=== PATIENT | male | born 1970 | race Caucasian/White ===

== ENCOUNTER → 2017-06-03 | Outpatient (CLI) | payer MEDICARE, SELFPAY | PROVIDERS: Visit Provider Physician Assistant | DX: R79.89 Other specified abnormal findings of blood chemistry (principal) | CPT/HCPCS: 36415; 80048 ==

== ENCOUNTER → 2017-10-21 13:26 | Outpatient (REF) | payer MEDICARE, SELFPAY ==
[2017-10-21 18:20] LABS: Basophils # 0.1 K/mm3 (0-0.2); Basophils % 0.7 % (0.1-2.0); Eosinophils # 0.6 K/mm3 (0.0-0.4); Eosinophils % 7.5 % (0.1-12.0); Hematocrit 46.3 % (42.0-52.0); Hemoglobin 14.8 g/dL (14.1-18.0); Lymphocytes # 2.3 K/mm3 (0.7-4.5); Lymphocytes % 27.2 K/mm3 (10-50); Mean Corpuscular HGB Conc 31.9 g/dL (31.8-35.4); Mean Corpuscular Volume 84.6 fl (80-94); Mean Platelet Volume 8.1 fl (7.4-10.4); Monocytes # 0.7 K/mm3 (0.1-1.0); Neutrophils # 4.7 K/mm3 (1.8-7.8); Neutrophils % 56.6 % (37.0-80.0); Platelet Count 384 K/mm3 (142-424); Red Blood Count 5.47 M/mm3 (4.60-6.20); Red Cell Distribution Width 12.8 % (11.5-17.5); White Blood Count 8.3 K/mm3 (4.8-10.8)
[2017-10-21 19:25] LABS: Hemoglobin A1C 7.6 % (0.0-7.0)
[2017-10-21 19:36] LABS: Alanine Aminotransferase 74 U/L (12-78); Albumin Level 4.4 gm/dL (3.4-5.0); Albumin/Globulin Ratio 1.1 (1.1-1.8); Alkaline Phosphatase 63 U/L (46-116); Anion Gap 15.6 mEq/L (5-15); Aspartate Amino Transferase 43 U/L (15-37); Bilirubin,Total 0.4 mg/dL (0.2-1.0); Blood Urea Nitrogen 21 mg/dL (7-18); Calcium 9.6 mg/dL (8.5-10.1); Carbon Dioxide 29 mmol/L (21.0-32.0); Chloride 103 mmol/L (98-107); Cholesterol 174 mg/dL (140-200); Creatinine,Serum 1.55 mg/dL (0.70-1.30); Estimated Glomerular Filt Rate 48 ml/min (>60); GFR (African American) 58 ML/MIN (>60); Globulin 3.9 gm/dl (1.3-3.2); Glucose 68 mg/dL (74-106); HDL Cholesterol 29 mg/dL (27-67); LDL Cholesterol 98 mg/dL (0-130); Potassium 4.6 mmoL/L (3.5-5.1); Sodium 143 mmol/L (136-145); T4 (Thyroxine) 7.7 ug/dl (4.7-13.3); Thyroid Stimulating Hormone 1.28 uIU/ml (0.358-3.740); Total Protein,Serum 8.3 gm/dL (6.4-8.2); Triglycerides 234 mg/dL (30-200); VLDL Cholesterol 47 mg/dL (0-40)
== END ==
LOC: LAB 13:26
PROVIDERS: Visit Provider Physician Assistant
DX: E11.9 Type 2 diabetes mellitus without complications (principal)
CPT/HCPCS: 80053; 80061; 83036; 84436; 84443; 85025

== ENCOUNTER → 2017-12-22 06:54 | Outpatient (CLI) | payer MEDICARE, SELFPAY ==
--- NOTE | 2017-12-22 06:56 | CA_ITS ---
PROCEDURE: 2-D M-mode and color Doppler study INDICATIONS FOR THE TEST: Chest pain COPD Heart Murmur Tobacco Smoking Palpitations Fatigue+ Syncope Edema+ Hypertension Diabetes Mellitus+ Rheumatic Fever SOB+MCCARTHY Obesity Hyperlipidemia Family History HD Additional History PATIENT INFORMATION HEIGHT: 75 WEIGHT:248 GENDER: Male B/P:168/94 2-D/M-MODE INTERPRETATION: 2-D MEASUREMENTS OBSERVED VALUES IN CMS Right Ventricular Dimension (RVDd) 2.3 Interventricular Septum (Thickness)(IVsd) 1.6 Left Ventricular Internal Dimensions(LVIDd) 5.4 Left Ventricular Posterior Wall (Thickness)(LVPWd) 0.8 Aortic Root 3.2 Aortic Cusp Separation 2.2 Left Atrial Dimensions (LAD) 4.2 2D 1. Left atrium is mildly enlarged, left ventricle is normal size, mild concentric left ventricular hypertrophy, visually estimated ejection fraction 55% with no obvious regional wall motion abnormality. 2. The right atrium and right ventricle are normal size and contractility. 3. The aortic valve is minimally thickened and fibrosed. 4. The mitral and tricuspid valve are structurally normal. 5. The pulmonic valve is poorly visualized. 6. No significant pericardial effusion noted. DOPPLER INTERROGATION: Doppler interrogation of the aortic, mitral and tricuspid valvular presence of mild mitral and tricuspid regurgitation, tricuspid and jet velocity is insufficient for calculation of the right ventricular systolic pressure, grade 1 diastolic dysfunction seen with tissue Doppler evidence of raised left atrial pressure. Mild aortic insufficiency is also seen. CONCLUSION: 1. Mildly enlarged left atrium, normal left ventricular size, mild concentric left ventricular hypertrophy, visually estimated ejection fraction 55% with no obvious regional wall motion abnormality, grade 1 diastolic dysfunction seen with tissue Doppler evidence of raised left atrial pressure. 2. Mild aortic, mild mitral and tricuspid regurgitation 3. No significant pericardial effusion noted.
--- NOTE | 2017-12-22 06:56 | NM_ITS ---
History and Indications: Hypertension, diabetes, family history, shortness of breath, palpitations and fatigue Procedure: Patient exercised on Sabino protocol 7 minutes, resting heart rate was 75 bpm resting blood pressure 133/81, with exercise maximum heart rate achieved was 1 51 bpm which is equal to 88% of the maximum predicted heart rate and a blood pressure was 167/84. Test was started due to shortness of breath, patient complained of mild chest tightness also. Patient has good exercise capacity achieved 10.1mets of workload on treadmill, the blood pressure response to exercise was adequate. Electrocardiogram: Resting electrocardiogram showed sinus rhythm nonspecific ST-T changes, with exercise excessive baseline artifact seen, less than 1.[address] segment depression noted from the baseline EKG. The EKG portion of the exercise Myoview is nondiagnostic secondary to baseline abnormal EKG. Cardiac stress and resting SPECT images: Cardiac stress and rest SPECT images were obtained using technetium 99 Myoview 30.8 mCi at stress content 10.8 mCi at rest. Gated SPECT further analysis of segmental wall motion and calculation of the ejection fraction also done. Cardiac stress and rest images show decreased tracer activity in the inferior and posterobasal wall which improves on the resting images suggestive of reversible ischemia, computer derived ejection fraction is 55% with no obvious regional wall motion abnormality, right ventricle is normal size and contractility. Conclusion: 1. The EKG portion of the exercise Myoview is nondiagnostic secondary to baseline abnormal EKG. Patient has good exercise capacity achieved 10.1mets of workload on treadmill, the blood pressure response to exercise was adequate, test was started due to shortness of breath and chest tightness. 2. Scintigraphic evidence of mild reversible ischemia involving the inferior and posterobasal wall, computer derived ejection fraction is 55% with no obvious regional wall motion abnormality, right ventricle is normal size and contractility. 3. Abnormal exercise Myoview study.
== END ==
PROVIDERS: Family Provider Physician Assistant; PCP Physician Assistant; Visit Provider Internal Medicine
DX: R06.09 Other forms of dyspnea (principal); R94.31 Abnormal electrocardiogram [ECG] [EKG]; R60.9 Edema, unspecified; R53.83 Other fatigue; E11.621 Type 2 diabetes mellitus with foot ulcer
CPT/HCPCS: 78452; 93017; 93306; A9502

== ENCOUNTER → 2018-01-12 14:47 | Outpatient (CLI) | payer MEDICARE, SELFPAY ==
[2018-01-12 14:53] LABS: Microscopic, Urine URINE MICROSCOPIC (MICROSCOPIC)
[2018-01-12 15:14] LABS: Appearance,Urine CLEAR (Clear); Basophils # 0.1 K/mm3 (0-0.2); Basophils % 0.5 % (0.1-2.0); Bilirubin,Urine Negative (Negative); Blood, Urine Negative (Negative); Color,Urine YELLOW (Yellow); Eosinophils # 0.6 K/mm3 (0.0-0.4); Eosinophils % 5.9 % (0.1-12.0); Glucose,Urine (UA) TRACE (Negative); Hemoglobin 14.2 g/dL (14.1-18.0); Ketones,Urine Negative (Negative); Leukocyte Esterase,Urine Negative (Negative); Lymphocytes # 2.4 K/mm3 (0.7-4.5); Lymphocytes % 24.3 K/mm3 (10-50); Mean Corpuscular HGB Conc 32.4 g/dL (31.8-35.4); Mean Corpuscular Hemoglobin 26.6 pg (27.0-31.2); Mean Corpuscular Volume 82.1 fl (80-94); Mean Platelet Volume 7.2 fl (7.4-10.4); Monocytes # 0.6 K/mm3 (0.1-1.0); Monocytes % 5.7 % (1.7-9.3); Neutrophils # 6.4 K/mm3 (1.8-7.8); Neutrophils % 63.7 % (37.0-80.0); Nitrate,Urine Negative (Negative); Platelet Count 374 K/mm3 (142-424); Protein,Urine TRACE (Negative); Red Blood Count 5.36 M/mm3 (4.60-6.20); Red Cell Distribution Width 12.8 % (11.5-17.5); Urobilinogen,Urine 0.2 EU/dl (0.2)
[2018-01-12 15:19] LABS: Creatinine,Urine Random 186 mg/dL (20-320); Total Protein,Urine Random 43.7 mg/dL (0.0-11.9)
[2018-01-12 15:24] LABS: Bacteria,Urine 1+ /lpf; WBC,Urine Occasional #/hpf (0-3)
[2018-01-12 16:30] LABS: Albumin Level 4.2 gm/dL (3.4-5.0); Anion Gap 12.7 mEq/L (5-15); Blood Urea Nitrogen 23 mg/dL (7-18); Calcium 9.3 mg/dL (8.5-10.1); Carbon Dioxide 30 mmol/L (21.0-32.0); Chloride 101 mmol/L (98-107); Estimated Glomerular Filt Rate 50 ml/min (>60); GFR (African American) 60 ML/MIN (>60); Glucose 207 mg/dL (74-106); Phosphorous 3.7 mg/dL (2.4-4.9); Potassium 4.7 mmoL/L (3.5-5.1); Sodium 139 mmol/L (136-145)
[2018-01-14 17:12] LABS: Parathyroid Hormone Intact 37 pg/mL (15-65); Vitamin D 25 Hydroxy 33.3 ng/mL (30.0-100.0)
== END ==
PROVIDERS: Visit Provider Internal Medicine Nephrology
DX: N18.3 Chronic kidney disease, stage 3 (moderate) (principal)
CPT/HCPCS: 36415; 80069; 81001; 82570; 82652; 83970; 84155; 85025

== ENCOUNTER → 2018-01-19 15:25 | Outpatient (POV) | payer MEDICARE, SELFPAY | PROVIDERS: Family Provider Physician Assistant; PCP Physician Assistant; Visit Provider Internal Medicine Nephrology | DX: Z00.00 Encounter for general adult medical examination without abnormal findings (principal) ==

== ENCOUNTER → 2018-07-17 13:06 | Outpatient (CLI) | payer MEDICARE, SELFPAY ==
[2018-07-17 13:09] LABS: Microscopic, Urine URINE MICROSCOPIC (MICROSCOPIC)
--- NOTE | 2018-07-17 13:30 | US_ITS ---
US kidney retroperitoneal comp HISTORY: ITS.REASON: CKD III ORDERING PHYSICIAN: Shaji Youssef PATIENT AGE: 47 years Comparison: None FINDINGS: RIGHT KIDNEY:Unremarkable. Normal size and echogenicity. No hydronephrosis. The right kidney measures 13 x 5 x 7 cm. No cortical thinning LEFT KIDNEY:Unremarkable. No hydronephrosis. Normal size and echogenicity. Left kidney measures 14 x 5 x 7 cm. No cortical thinning apparent OTHER FINDINGS: No other pertinent findings IMPRESSION: Unremarkable bilateral renal ultrasound
[2018-07-17 13:40] LABS: Basophils % 0.3 % (0.1-2.0); Eosinophils # 0.1 K/mm3 (0.0-0.4); Eosinophils % 0.5 % (0.1-12.0); Lymphocytes # 1.4 K/mm3 (0.7-4.5); Lymphocytes % 11.3 % (10-50); Mean Corpuscular Hemoglobin 26.4 pg (27.0-31.2); Mean Corpuscular Volume 85.4 fl (80-94); Mean Platelet Volume 7.4 fl (7.4-10.4); Monocytes # 0.6 K/mm3 (0.1-1.0); Monocytes % 4.8 % (1.7-9.3); Neutrophils # 10.4 K/mm3 (1.8-7.8); Neutrophils % 83.2 % (37.0-80.0); Platelet Count 433 K/mm3 (142-424); Red Blood Count 5.28 M/mm3 (4.60-6.20); Red Cell Distribution Width 12.7 % (11.5-17.5); White Blood Count 12.5 K/mm3 (4.8-10.8)
[2018-07-17 14:14] LABS: Appearance,Urine CLEAR (Clear); Bilirubin,Urine Negative (Negative); Blood, Urine Negative (Negative); Color,Urine YELLOW (Yellow); Glucose,Urine (UA) 3+ (Negative); Ketones,Urine Negative (Negative); Leukocyte Esterase,Urine Negative (Negative); Nitrate,Urine Negative (Negative); Protein,Urine 1+ (Negative); Urobilinogen,Urine 0.2 EU/dl (0.2)
[2018-07-17 14:31] LABS: Creatinine,Urine Random 96 mg/dL (20-320); Total Protein,Urine Random 50.3 mg/dL (0.0-11.9)
[2018-07-17 14:40] LABS: Albumin Level 3.7 gm/dL (3.4-5.0); Anion Gap 15.3 mEq/L (5-15); Blood Urea Nitrogen 32 mg/dL (7-18); Calcium 9.7 mg/dL (8.5-10.1); Carbon Dioxide 28 mmol/L (21.0-32.0); Chloride 97 mmol/L (98-107); Creatinine,Serum 1.48 mg/dL (0.70-1.30); Estimated Glomerular Filt Rate 51 ml/min (>60); GFR (African American) 61 ML/MIN (>60); Glucose 375 mg/dL (74-106); Phosphorous 4.5 mg/dL (2.4-4.9); Potassium 5.3 mmoL/L (3.5-5.1); Sodium 135 mmol/L (136-145)
[2018-07-17 15:09] LABS: Bacteria,Urine 1+ /lpf; RBC,Urine Occasional #/hpf (0-3)
== END ==
PROVIDERS: Visit Provider Internal Medicine Nephrology
DX: N18.3 Chronic kidney disease, stage 3 (moderate) (principal)
CPT/HCPCS: 36415; 76770; 80069; 81001; 82570; 84155; 85025

== ENCOUNTER → 2019-02-16 17:54 | Outpatient (CLI) | payer MEDICARE, SELFPAY ==
[2019-02-16 18:30] LABS: Basophils # 0.1 K/mm3 (0-0.2); Basophils % 0.5 % (0.1-2.0); Eosinophils # 0.7 K/mm3 (0.0-0.4); Eosinophils % 7.4 % (0.1-12.0); Hematocrit 43.1 % (42.0-52.0); Hemoglobin 13.8 g/dL (14.1-18.0); Lymphocytes # 1.7 K/mm3 (0.7-4.5); Lymphocytes % 17.3 % (10-50); Mean Corpuscular HGB Conc 32.1 g/dL (31.8-35.4); Mean Corpuscular Hemoglobin 27.2 pg (27.0-31.2); Mean Corpuscular Volume 84.8 fl (80-94); Mean Platelet Volume 8.3 fl (7.4-10.4); Monocytes # 0.6 K/mm3 (0.1-1.0); Monocytes % 6.4 % (1.7-9.3); Neutrophils # 6.7 K/mm3 (1.8-7.8); Neutrophils % 68.4 % (37.0-80.0); Platelet Count 391 K/mm3 (142-424); Red Blood Count 5.08 M/mm3 (4.60-6.20); Red Cell Distribution Width 13.2 % (11.5-17.5); White Blood Count 9.9 K/mm3 (4.8-10.8)
[2019-02-16 19:21] LABS: Alanine Aminotransferase 66 U/L (12-78); Albumin/Globulin Ratio 1.1 (1.1-1.8); Alkaline Phosphatase 55 U/L (46-116); Anion Gap 16.4 mEq/L (5-15); Aspartate Amino Transferase 32 U/L (15-37); Bilirubin,Total 0.4 mg/dL (0.2-1.0); Blood Urea Nitrogen 23 mg/dL (7-18); Calcium 9.4 mg/dL (8.5-10.1); Carbon Dioxide 26 mmol/L (21.0-32.0); Chloride 100 mmol/L (98-107); Chol/HDL Ratio 4.5 (1-3.5); Cholesterol 109 mg/dL (140-200); Creatinine,Serum 1.53 mg/dL (0.70-1.30); Estimated Glomerular Filt Rate 49 ml/min (>60); GFR (African American) 59 ML/MIN (>60); Globulin 3.5 gm/dl (1.3-3.2); Glucose 296 mg/dL (74-106); HDL Cholesterol 24 mg/dL (27-67); LDL Cholesterol 26 mg/dL (0-130); Potassium 5.4 mmoL/L (3.5-5.1); Sodium 137 mmol/L (136-145); T4 (Thyroxine) 5.8 ug/dl (4.7-13.3); Thyroid Stimulating Hormone 1.14 uIU/ml (0.358-3.740); Total Protein,Serum 7.5 gm/dL (6.4-8.2); Triglycerides 295 mg/dL (30-200); VLDL Cholesterol 59 mg/dL (0-40)
[2019-02-16 19:54] LABS: Hemoglobin A1C 8.8 % (0.0-7.0)
[2019-02-19 11:41] LABS: Vitamin D 25 Hydroxy 23.8 ng/mL (30.0-100.0)
[2019-02-19 11:42] LABS: Microalbumin, Urine 89.3 ug/mL (Not Estab.)
== END ==
PROVIDERS: Visit Provider Physician Assistant
DX: E11.9 Type 2 diabetes mellitus without complications (principal); Z79.84 Long term (current) use of oral hypoglycemic drugs
CPT/HCPCS: 80053; 80061; 82043; 82652; 83036; 84436; 84443; 85025

== ENCOUNTER → 2019-08-31 10:02 | Outpatient (CLI) | payer MEDICARE, SELFPAY ==
--- NOTE | 2019-08-31 10:08 | XR_ITS ---
PROCEDURE: XR FOOT WT BEARING LT 3V CLINICAL INDICATION: b/l dm ulcers, hx of toe amputations Follow-up surgery COMPARISON: FTR3 FOOT-RT-3 VIEWS from 12/28/2014 FTR3 FOOT-RT-3 VIEWS from 10/31/2015 FTL3 FOOT-LT-3 VIEWS from 10/31/2015 FINDINGS: There has been amputation at the mid aspect of the 5th metatarsal and the mid to distal aspect the 4th metatarsal. The 1st 2nd and 3rd toes have an unremarkable appearance. No bony destructive process evident. There is mild pes planus with mild osteoarthritic change at the talonavicular joint. Other findings:None. IMPRESSION: Prior amputation at the 4th and 5th metatarsals with no acute finding Dictated by: Garfield Velasco MD 08/31/2019 12:03 Electronically signed by Garfield Velasco MD in [place] 08/31/2019 12:03
--- NOTE | 2019-08-31 10:08 | XR_ITS ---
PROCEDURE: XR FOOT WT BEARING RT 3V CLINICAL INDICATION: b/l DM ulcers, hx of toe amputations Follow-up surgery COMPARISON: FTR3 FOOT-RT-3 VIEWS from 12/28/2014 FTR3 FOOT-RT-3 VIEWS from 10/31/2015 FTL3 FOOT-LT-3 VIEWS from 10/31/2015 FINDINGS: There has been an interval amputation at the mid aspect of the 4th metatarsal. There is some deformity of the distal aspect of the 3rd metatarsal with sclerosis at the proximal phalanx of the 3rd toe. There is a short proximal phalanx of the 3rd toe which has developed since the previous study and may be postsurgical in nature. There is some cortical regularity involving the interphalangeal joint of the 3rd toe. The joint space is preserved however. This could be chronic or acute. Cannot exclude the possibility of a septic arthritic change or erosive osteoarthritis. Please correlate with clinical parameters. Osteoarthritic changes are present at the talonavicular joint IMPRESSION: There has been an interval amputation at the mid aspect of the 4th metatarsal. There is some deformity of the distal aspect of the 3rd metatarsal with sclerosis at the proximal phalanx of the 3rd toe. There is a short proximal phalanx of the 3rd toe which has developed since the previous study and may be postsurgical in nature. There is some cortical regularity involving the interphalangeal joint of the 3rd toe. The joint space is preserved however. This could be chronic or acute. Cannot exclude the possibility of a septic arthritic change or erosive osteoarthritis. Dictated by: Garfield Velasco MD 08/31/2019 11:39 Electronically signed by Garfield Velasco MD in [place] 08/31/2019 11:39
[2019-08-31 11:12] LABS: Basophils % 0.6 % (0.1-2.0); Eosinophils # 0.8 K/mm3 (0.0-0.4); Eosinophils % 10.8 % (0.1-12.0); Hemoglobin 13.4 g/dL (14.1-18.0); Lymphocytes # 1.7 K/mm3 (0.7-4.5); Lymphocytes % 24.6 % (10-50); Mean Corpuscular HGB Conc 31.1 g/dL (31.8-35.4); Mean Corpuscular Hemoglobin 26.9 pg (27.0-31.2); Mean Corpuscular Volume 86.4 fl (80-94); Mean Platelet Volume 7.4 fl (7.4-10.4); Monocytes # 0.4 K/mm3 (0.1-1.0); Monocytes % 5.7 % (1.7-9.3); Neutrophils % 58.3 % (37.0-80.0); Platelet Count 369 K/mm3 (142-424); Red Blood Count 4.98 M/mm3 (4.60-6.20); Red Cell Distribution Width 12.8 % (11.5-17.5); White Blood Count 6.9 K/mm3 (4.8-10.8)
[2019-08-31 12:13] LABS: Erythrocyte Sedimentation Rate 15 mm/hr (0-15)
[2019-08-31 12:15] LABS: Alanine Aminotransferase 24 U/L (12-78); Albumin Level 4.4 g/dl (3.5-5.0); Albumin/Globulin Ratio 1.5 (1.1-1.8); Alkaline Phosphatase 44 U/L (38-126); Anion Gap 13.1 mEq/L (5-15); Aspartate Amino Transferase 29 U/L (17-59); Bilirubin,Total 0.3 mg/dl (0.2-1.3); Blood Urea Nitrogen 22 mg/dl (9-20); Carbon Dioxide 30 mmol/L (22.0-30.0); Chloride 100 mmol/L (98-107); Estimated Glomerular Filt Rate 64 ml/min (>60); GFR (African American) 78 ML/MIN (>60); Globulin 2.9 g/dL (1.3-3.2); Glucose 78 mg/dl (74-100); Potassium 5.1 mmoL/L (3.5-5.1); Sodium 138 mmol/L (136-145); Total Protein,Serum 7.3 g/dl (6.3-8.2)
[2019-08-31 12:20] LABS: C-Reactive Protein 1.9 mg/L (0-4)
== END ==
PROVIDERS: PCP Physician Assistant; Visit Provider Podiatrist
DX: Z51.89 Encounter for other specified aftercare (principal); R94.31 Abnormal electrocardiogram [ECG] [EKG]; R09.89 Other specified symptoms and signs involving the circulatory and respiratory systems; E11.621 Type 2 diabetes mellitus with foot ulcer; Z89.422 Acquired absence of other left toe(s); Z89.421 Acquired absence of other right toe(s); L97.512 Non-pressure chronic ulcer of other part of right foot with fat layer exposed; L97.522 Non-pressure chronic ulcer of other part of left foot with fat layer exposed; Z79.84 Long term (current) use of oral hypoglycemic drugs
CPT/HCPCS: 36415; 73630; 80053; 85025; 85651; 86140

== ENCOUNTER → 2019-09-03 10:34 | Outpatient (CLI) | payer MEDICARE, SELFPAY ==
--- NOTE | 2019-09-03 10:35 | US_ITS ---
APPROVED REPORT Exam Type: Ankle to Brachial Index Project Management Analyst: Susana Frost RT(R) Indications Non-healing Ulcer: Bilaterally Risk Factors Hypertension Hyperlipidemia Diabetes bilateral ulcers on plantar surface of both feet Pressures/Indices Right Indices Left Indices Brachial 152.00 mmHg Brachial 152.00 mmHg Low Thigh 177.00 mmHg 1.16 Low Thigh 193.00 mmHg 1.27 Calf 190.00 mmHg 1.25 Calf 184.00 mmHg 1.21 Ankle(PT) 192.00 mmHg 1.26 Ankle(PT) 197.00 mmHg 1.30 Ankle(DP) 185.00 mmHg 1.22 Ankle(DP) 168.00 mmHg 1.11 Digit 164.00 mmHg 1.08 Digit 110.00 mmHg 0.72 Findings RT TERRA=1.3 LT TERRA=1.3 RT TBI=1.1 LT TBI=0.7 Normal pulses Normal waveforms TERRA ratios consistent with restrictive pattern secondary to diabetes Conclusion Normal pulses Normal waveforms TERRA ratios consistent with restrictive pattern secondary to diabetes Electronically signed by : Garfield Velasco MD 09/03/2019 15:06:38
== END ==
PROVIDERS: PCP Physician Assistant; Visit Provider Podiatrist
DX: R09.89 Other specified symptoms and signs involving the circulatory and respiratory systems (principal)
CPT/HCPCS: 93923

== ENCOUNTER → 2019-09-07 13:00 | Outpatient (CLI) | payer MEDICARE, SELFPAY ==
--- NOTE | 2019-09-07 13:00 | MR_ITS ---
PROCEDURE: MR FOOT RT WO/W CON CLINICAL INDICATION: Chronic non-healing DM ulcer Nonhealing diabetic ulcer at the 5th metatarsal area COMPARISON: XR FOOT WT BEARING RT 3V from 08/31/2019 XR FOOT RT MIN 3V from 09/09/2019 TECHNIQUE: Routine multiplanar multi echo sequences are performed without and with gadolinium enhancement. FINDINGS: There has been prior amputation the mid aspect of the 4th metatarsal. There is medial deviation of the 5th toe and lateral deviation of the 3rd toe. There is increased T2 signal within the soft tissues at the distal aspect of the 5th metatarsal medially and about the 5th toe. There is also some increased T2 signal within the head of the 5th metatarsal as well as the phalanges of the 5th toe with enhancement of these structures and the surrounding soft tissues. Soft tissue ulceration noted along the plantar surface at the head of the 5th metatarsal.. No abscess or fistulous tract evident. There is a small focus of increased T2 signal in the middle cuneiform nonspecific. The anterior talofibular ligament is not identified and may be torn. No other ligamentous or tendinous abnormalities are evident. IMPRESSION: Cellulitis about the 5th metatarsophalangeal joint and the 5th toe with some bone marrow edema noted at these areas as well which could be related to underlying osteomyelitis. No abscess or fistulous tracts evident. Postsurgical changes from prior amputation of the 4th metatarsal with medial deviation of the 5th toe and lateral angulation of the 3rd toe Suspect chronic tear of the ATFL Dictated by: Garfield Velasco MD 09/10/2019 10:05 Electronically signed by Garfield Velasco MD in [place] 09/10/2019 10:05
== END ==
PROVIDERS: PCP Physician Assistant; Visit Provider Podiatrist
DX: L97.512 Non-pressure chronic ulcer of other part of right foot with fat layer exposed (principal)
CPT/HCPCS: 73720; A9576

== ENCOUNTER → 2019-09-08 11:41 | Outpatient (CLI) | payer MEDICARE, SELFPAY ==
--- NOTE | 2019-09-08 11:46 | XR_ITS ---
PROCEDURE: XR CHEST 2V CLINICAL HISTORY: HTN Hypertension COMPARISON: CXR CHEST(2 VIEWS-NOT PORTABLE) from 01/10/2015 CXR1 CHEST-PORTABLE from 02/14/2016 CXR CHEST(2 VIEWS-NOT PORTABLE) from 05/19/2017 FINDINGS: The cardiomediastinal silhouette and pulmonary vascularity are within normal limits. The lungs are clear without infiltrates, suspicious nodules, or pleural effusions. No acute bony abnormalities. IMPRESSION: No acute findings. Dictated by: Garfield Velasco MD 09/08/2019 12:46 Electronically signed by Garfield Velasco MD in [place] 09/08/2019 12:46
--- NOTE | 2019-09-08 12:03 | ECG_ITS ---
APPROVED REPORT Exam: Resting ECG HR:77 bpm ECG Measurements Heart Rate 77 AXES WI 150 P 19 QRSd 88 QRS -26 QT 354 T 63 QTc 400 <Conclusion> Normal sinus rhythm Normal ECG Electronically signed by : Keo Bills, 09/08/2019 21:37:24
== END ==
PROVIDERS: PCP Physician Assistant; Visit Provider Podiatrist
DX: Z01.818 Encounter for other preprocedural examination (principal); L97.512 Non-pressure chronic ulcer of other part of right foot with fat layer exposed
CPT/HCPCS: 71046; 93005

== ENCOUNTER 2019-09-10 10:17 | Outpatient (CLI) | payer MEDICARE, SELFPAY ==
[2019-09-10 10:45] VITALS: BP 132/67; PULSE 80; O2SAT 98
[2019-09-10 11:45] VITALS: BP 134/74; PULSE 82; RESP 20
[2019-09-10 12:38] VITALS: BP 134/74; PULSE 68; RESP 20; TEMP 36.9; O2SAT 98
== END 2019-09-10 12:50 | disposition home or self-care (01) ==
LOC: INF 10:17
PROVIDERS: Visit Provider Podiatrist
DX: L97.522 Non-pressure chronic ulcer of other part of left foot with fat layer exposed (principal); E11.621 Type 2 diabetes mellitus with foot ulcer; Z86.14 Personal history of Methicillin resistant Staphylococcus aureus infection; Z79.84 Long term (current) use of oral hypoglycemic drugs
CPT/HCPCS: 96365; 96366

== ENCOUNTER → 2019-10-28 18:22 | Outpatient (CLI) | payer MEDICARE, SELFPAY | PROVIDERS: Visit Provider Podiatrist | DX: Z98.890 Other specified postprocedural states (principal) | CPT/HCPCS: 87070; 87077; 87186; 87205 ==

== ENCOUNTER → 2019-11-02 09:08 | Outpatient (CLI) | payer MEDICARE, SELFPAY ==
--- NOTE | 2019-11-02 09:44 | XR_ITS ---
PROCEDURE: XR FOOT WT BEARING RT 3V CLINICAL INDICATION: post-op COMPARISON: XR FOOT RT MIN 3V from 09/09/2019 FINDINGS: The cast has been removed when compared to the most recent study 09/09/2019. The transmetatarsal amputation of the distal forefoot is again noted. The postsurgical stumps of the 1st through 5th metatarsals have smooth well-defined postsurgical borders. The soft tissues appear normal. The tarsal bones appear grossly normal except for minor dorsal spurring of the navicular at the talonavicular articulation. Other findings:None. IMPRESSION: Postsurgical changes as described above Dictated by: Dr. Stoney De La Rosa MD 11/02/2019 10:[address] Stoney De La Rosa MD in [place] 11/02/2019 10:04
[2019-11-02 10:01] LABS: Basophils # 0.1 K/mm3 (0-0.2); Basophils % 0.8 % (0.1-2.0); Eosinophils # 0.8 K/mm3 (0.0-0.4); Eosinophils % 10.7 % (0.1-12.0); Hematocrit 42.4 % (42.0-52.0); Hemoglobin 13.2 g/dL (14.1-18.0); Lymphocytes # 1.9 K/mm3 (0.7-4.5); Lymphocytes % 25.4 % (10-50); Mean Corpuscular HGB Conc 31.1 g/dL (31.8-35.4); Mean Corpuscular Hemoglobin 26.2 pg (27.0-31.2); Mean Corpuscular Volume 84.3 fl (80-94); Mean Platelet Volume 7.2 fl (7.4-10.4); Monocytes # 0.6 K/mm3 (0.1-1.0); Monocytes % 7.8 % (1.7-9.3); Neutrophils # 4.2 K/mm3 (1.8-7.8); Neutrophils % 55.4 % (37.0-80.0); Platelet Count 410 K/mm3 (142-424); Red Blood Count 5.03 M/mm3 (4.60-6.20); Red Cell Distribution Width 13.5 % (11.5-17.5); White Blood Count 7.5 K/mm3 (4.8-10.8)
[2019-11-02 11:04] LABS: Chloride 98 mmol/L (98-107); Erythrocyte Sedimentation Rate 15 mm/hr (0-15); Potassium 5.5 mmoL/L (3.5-5.1); Sodium 137 mmol/L (136-145)
[2019-11-02 11:07] LABS: Alanine Aminotransferase 19 U/L (12-78); Albumin Level 4.5 g/dl (3.5-5.0); Albumin/Globulin Ratio 1.5 (1.1-1.8); Alkaline Phosphatase 49 U/L (38-126); Anion Gap 14.5 mEq/L (5-15); Aspartate Amino Transferase 26 U/L (17-59); Bilirubin,Total 0.6 mg/dl (0.2-1.3); Blood Urea Nitrogen 30 mg/dl (9-20); Calcium 9.9 mg/dl (8.4-10.2); Carbon Dioxide 30 mmol/L (22.0-30.0); Estimated Glomerular Filt Rate 64 ml/min (>60); GFR (African American) 78 ML/MIN (>60); Glucose 113 mg/dl (74-100); Total Protein,Serum 7.5 g/dl (6.3-8.2)
[2019-11-02 11:13] LABS: C-Reactive Protein 1.2 mg/L (0-4)
== END ==
PROVIDERS: PCP Physician Assistant; Visit Provider Podiatrist
DX: Z98.890 Other specified postprocedural states (principal); Z86.14 Personal history of Methicillin resistant Staphylococcus aureus infection
CPT/HCPCS: 36415; 73630; 80053; 85025; 85651; 86140

== ENCOUNTER → 2019-11-16 09:12 | Outpatient (CLI) | payer MEDICARE, SELFPAY ==
[2019-11-16 10:35] LABS: Basophils # 0.1 K/mm3 (0-0.2); Basophils % 1.2 % (0.1-2.0); Eosinophils # 0.7 K/mm3 (0.0-0.4); Eosinophils % 9.5 % (0.1-12.0); Hematocrit 42.5 % (42.0-52.0); Hemoglobin 13.5 g/dL (14.1-18.0); Lymphocytes # 1.7 K/mm3 (0.7-4.5); Mean Corpuscular HGB Conc 31.9 g/dL (31.8-35.4); Mean Corpuscular Hemoglobin 27.1 pg (27.0-31.2); Mean Platelet Volume 7.3 fl (7.4-10.4); Monocytes # 0.5 K/mm3 (0.1-1.0); Neutrophils # 4.8 K/mm3 (1.8-7.8); Neutrophils % 61.3 % (37.0-80.0); Platelet Count 367 K/mm3 (142-424); Red Cell Distribution Width 13.3 % (11.5-17.5); White Blood Count 7.8 K/mm3 (4.8-10.8)
[2019-11-16 11:44] LABS: Erythrocyte Sedimentation Rate 15 mm/hr (0-15)
[2019-11-16 12:14] LABS: Hemoglobin A1C 6.4 % (4.0-6.0)
[2019-11-16 12:17] LABS: Alanine Aminotransferase 27 U/L (12-78); Albumin Level 4.9 g/dl (3.5-5.0); Albumin/Globulin Ratio 1.5 (1.1-1.8); Alkaline Phosphatase 47 U/L (38-126); Anion Gap 14.6 mEq/L (5-15); Aspartate Amino Transferase 31 U/L (17-59); Bilirubin,Total 0.4 mg/dl (0.2-1.3); Blood Urea Nitrogen 31 mg/dl (9-20); Calcium 10.5 mg/dl (8.4-10.2); Carbon Dioxide 29 mmol/L (22.0-30.0); Chloride 98 mmol/L (98-107); Estimated Glomerular Filt Rate 50 ml/min (>60); GFR (African American) 60 ML/MIN (>60); Globulin 3.2 g/dL (1.3-3.2); Glucose 108 mg/dl (74-100); Potassium 5.6 mmoL/L (3.5-5.1); Sodium 136 mmol/L (136-145); Total Protein,Serum 8.1 g/dl (6.3-8.2)
[2019-11-16 12:23] LABS: C-Reactive Protein 1.8 mg/L (0-4)
== END ==
PROVIDERS: Visit Provider Podiatrist
DX: E11.621 Type 2 diabetes mellitus with foot ulcer (principal); L97.509 Non-pressure chronic ulcer of other part of unspecified foot with unspecified severity; Z98.890 Other specified postprocedural states
CPT/HCPCS: 36415; 80053; 83036; 85025; 85651; 86140

== ENCOUNTER → 2020-02-08 09:24 | Outpatient (CLI) | payer MEDICARE, SELFPAY ==
--- NOTE | 2020-02-08 09:29 | XR_ITS ---
PROCEDURE: XR FOOT WT BEARING LT 3V CLINICAL INDICATION: Left Sub 3rd met DM ulcer Pain and swelling, soft tissue ulcer COMPARISON: CR FTL3 FOOT-LT-3 VIEWS from 10/31/2015 CR XR FOOT WT BEARING LT 3V from 08/31/2019 CR XR FOOT RT 2V from 09/09/2019 CR XR FOOT RT MIN 3V from 09/09/2019 CR XR FOOT WT BEARING RT 3V from 11/02/2019 FINDINGS: Status post amputation at the mid shaft the 5th metatarsal and 4th metatarsal There is some faint soft tissue calcification at the distal and plantar aspect of the 3rd metatarsal which was present on 08/31/2019. There is mild pes planus with bony hypertrophy of the talonavicular joint Other findings:None. IMPRESSION: No acute bony destructive process evident. There is some faint calcification in the soft tissues along the plantar aspect and distal aspect of the 3rd metatarsal. Dictated by: Garfield Velasco MD 02/08/2020 10:30 Garfield Velasco MD in [place] 02/08/2020 10:30
== END ==
PROVIDERS: PCP Physician Assistant; Visit Provider Podiatrist
DX: L97.522 Non-pressure chronic ulcer of other part of left foot with fat layer exposed (principal)
CPT/HCPCS: 73630

== ENCOUNTER → 2020-03-23 17:50 | Outpatient (CLI) | payer MEDICARE, SELFPAY | PROVIDERS: Visit Provider Podiatrist | DX: S90.822A Blister (nonthermal), left foot, initial encounter (principal); Z51.89 Encounter for other specified aftercare | CPT/HCPCS: 87070; 87077; 87186; 87205 ==

== ENCOUNTER → 2020-05-29 18:00 | Outpatient (CLI) | payer MEDICARE, SELFPAY | PROVIDERS: Visit Provider Nurse Practitioner | DX: Z51.89 Encounter for other specified aftercare (principal); E11.621 Type 2 diabetes mellitus with foot ulcer | CPT/HCPCS: 87070; 87077; 87186; 87205 ==

== ENCOUNTER 2020-07-08 18:08 | Emergency (ER) | payer MEDICARE, SELFPAY ==
[2020-07-08 18:25] VITALS: BP 140/88; PULSE 80; RESP 20; TEMP 36.9; O2SAT 100; BMI 31.5
--- NOTE | 2020-07-08 18:57 | HMH.EDUTC ---
[facility] [place] Clinical Impression: Nausea & vomiting Qualifiers: Vomiting type: unspecified Vomiting Intractability: unspecified Qualified Code(s): R11.2 - Nausea with vomiting, unspecified Disposition: Home, Self-Care Condition on Discharge: Good Instructions: DI for Nausea -- Adult, Nausea and Vomiting-Adult Additional Instructions: ? Avoid fruit juices, as these do not replace minerals and can actually increase diarrhea. ? Children and adults can use sports drinks to replenish electrolytes. Younger children and infants should use products formulated for children, like oral rehydration solutions. ? Eat food in small amounts and let your stomach recover. ? Get lots of rest. You may feel tired or weak. ? No greasy or fried foods for the next 24-48 hours BRAT diet Bananas Rice Apples and [place] ? Make sure to drink plenty of liquids ? Return if needed ? Straight to ER if any life threatening symptoms ? Phenergan as prescribed ? Follow up with family doctor in the next 48-72 hours if no improvement or any worsening of symptoms Prescriptions: Promethazine HCl [Phenergan 25mg tab] 12.5 mg PO Q6H PRN #6 tab PRN Reason: Nausea And Vomiting Prescription Printed Referrals: Princess Grimes PA [Primary Care Provider] - Time of Disposition: 20:14 Medical Decision Making - Juan Inquiry Pt receiving controlled substance: No Juan was queried for this patient: No Vital Signs: 07/08/20 18:25 07/08/20 20:20 Temperature 98.4 F 98.4 F Temperature Source Oral Pulse Rate 80 Pulse Rate [Right Brachial] 80 Respiratory Rate 20 20 Blood Pressure 140/88 Blood Pressure [Right Arm] 140/88 Blood Pressure Mean [Right Arm] 105 Blood Pressure Source [Right Arm] Automatic Cuff Blood Pressure Position [Right Arm] Sitting 02 Sat by Pulse Oximetry 100 Oxygen Delivery Method Room Air - Lab Data Lab Results 07/08/20 18:42: Influenza Type A Ag Negative, Influenza Type B Ag Negative Orders (Tests/Meds): ED MEDICATIONS Discontinued Medications Generic Name Dose Route Start Last Admin Trade Name Freq PRN Reason Stop Dose Admin Sodium Chloride 1,000 mls @ 999 mls/hr 07/08/20 19:30 07/08/20 19:15 Sod Chlor 0.9% 1000ml Bag IV 07/08/20 20:30 999 mls/hr .Q1H1M JAKOB Administration Ondansetron HCl 4 mg 07/08/20 19:09 07/08/20 19:15 Ondansetron 4mg/2ml Vial IV 07/08/20 19:10 4 mg ONCE ONE Administration Medical Decision Narrative: Patient Saline bolus infusion complete, no vomiting since medication and patient states that he feels much better [facility] [place] - General Stated complaint: vomiting Time Seen by Provider: 07/08/20 18:57 Mode of Arrival: Ambulatory Source of Information: Patient Limitations: No Limitations Description of Symptoms (Recalled from Triage Doc. by RN): PATIENT C/O NAUSEA, VOMITING AND CHILLS FOR THE LAST 14 HOURS. HE STATES HE HAS TAKEN TUMS, PEPTO BISMOL AND ZOFRAN WITHOUT RELIEF. HEENT Symptoms (Recalled from RN notes): No Resp Symptoms (Recalled from RN notes): No Skin Symptoms (Recalled from RN notes): No MS Symptoms (Recalled from RN notes): No Functional Status (Recalled from RN notes): WNL - History of Present Illness Provider Complaint: Patient state that he thinks he may have a stomach bug States that he started feeling bad yesterday having body aches and nausea and started having some vomiting last night States that he has continued to have N/V on and off all day States that he took some pepto, tums and left over Zofran earlier today but still having some vomiting so he went and got tested for COVID and he is waiting on those test results and wanted to get checked for the flu - Related Data Home Medications Medication Instructions Recorded Confirmed glipiZIDE [Glipizide] 10 mg PO DAILY 09/08/19 07/04/20 Previous Rx's Medication Instructions Recorded aspirin 81 mg tablet,delayed 81 mg PO DAILY #90 each 09/27/19 release ergocalcife
[2020-07-08 20:20] VITALS: BP 140/88; PULSE 80; RESP 20; TEMP 36.9; O2SAT 100
[2020-07-08 20:32] LABS: UTC Influenza A Antigen Negative (Negative)
[2020-07-08 20:33] LABS: UTC Influenza B Antigen Negative (Negative)
== END 2020-07-08 20:22 | disposition home or self-care (01) ==
PROVIDERS: Emergency Provider Nurse Practitioner; PCP Physician Assistant
DX: R11.2 Nausea with vomiting, unspecified (principal); I10 Essential (primary) hypertension; E78.5 Hyperlipidemia, unspecified; E11.9 Type 2 diabetes mellitus without complications; Z79.899 Other long term (current) drug therapy
CPT/HCPCS: G0463; 87804; 96365; 96372; 99202; J2405

== ENCOUNTER → 2020-07-12 15:04 | Outpatient (CLI) | payer MEDICARE, SELFPAY ==
--- NOTE | 2020-07-12 15:08 | XR_ITS ---
PROCEDURE: XR CHEST PORTABLE CLINICAL HISTORY: COVID OUTPATIENT COMPARISON: DX CXR CHEST(2 VIEWS-NOT PORTABLE) from 05/19/2017 CR XR CHEST 2V from 09/08/2019 CR XR CHEST PORTABLE PICC PLAC from 09/09/2019 FINDINGS: The cardiomediastinal silhouette and pulmonary vascularity are within normal limits. Patchy density is present in the right upper lobe and right lower lobe suspicious for ground-glass infiltrates from Covid19 pneumonia. No acute bony abnormalities. IMPRESSION: Suspect faint ground-glass infiltrates in the right upper and right lower lobe from Covid19 pneumonia Dictated by: Garfield Velasco MD 07/12/2020 16:08 Garfield Velasco MD in [place] 07/12/2020 16:08
[2020-07-12 16:16] LABS: Basophils % 0.5 % (0.1-2.0); Eosinophils % 0.1 % (0.1-12.0); Hematocrit 40.5 % (42.0-52.0); Lymphocytes # 0.9 K/mm3 (0.7-4.5); Lymphocytes % 17.4 % (10-50); Mean Corpuscular HGB Conc 32.1 g/dL (31.8-35.4); Mean Corpuscular Volume 80.9 fl (80-94); Mean Platelet Volume 7.2 fl (7.4-10.4); Monocytes # 0.5 K/mm3 (0.1-1.0); Monocytes % 9.8 % (1.7-9.3); Neutrophils # 3.8 K/mm3 (1.8-7.8); Neutrophils % 72.2 % (37.0-80.0); Platelet Count 352 K/mm3 (142-424); Red Blood Count 5.01 M/mm3 (4.60-6.20); Red Cell Distribution Width 12.7 % (11.5-17.5); White Blood Count 5.3 K/mm3 (4.8-10.8)
== END ==
PROVIDERS: PCP Physician Assistant; Visit Provider Physician Assistant
DX: U07.1 COVID-19; I10 Essential (primary) hypertension
CPT/HCPCS: 71045; 85025; U0003

== ENCOUNTER → 2020-08-08 09:07 | Outpatient (CLI) | payer MEDICARE, SELFPAY ==
--- NOTE | 2020-08-08 09:12 | XR_ITS ---
PROCEDURE: XR FOOT WT BEARING LT 3V CLINICAL INDICATION: wound Diabetic ulcer COMPARISON: CR XR FOOT RT MIN 3V from 09/09/2019 CR XR FOOT RT 2V from 09/09/2019 CR XR FOOT WT BEARING RT 3V from 11/02/2019 CR XR FOOT WT BEARING LT 3V from 02/08/2020 FINDINGS: Status post amputation at the mid shaft of the 4th and 5th metatarsals. No bony destructive process evident. There is mild pes planus. Other findings:None. IMPRESSION: Postsurgical changes, no acute finding Dictated by: Garfield Velasco MD 08/08/2020 16:48 Garfield Velasco MD in [place] 08/08/2020 16:48
== END ==
PROVIDERS: PCP Physician Assistant; Visit Provider Nurse Practitioner
DX: Z51.89 Encounter for other specified aftercare (principal); L97.522 Non-pressure chronic ulcer of other part of left foot with fat layer exposed
CPT/HCPCS: 73630

== ENCOUNTER → 2020-08-15 09:15 | Outpatient (CLI) | payer MEDICARE, SELFPAY | PROVIDERS: PCP Physician Assistant; Visit Provider Urology | DX: Z98.890 Other specified postprocedural states (principal); I10 Essential (primary) hypertension; I25.10 Atherosclerotic heart disease of native coronary artery without angina pectoris; R94.31 Abnormal electrocardiogram [ECG] [EKG]; E78.5 Hyperlipidemia, unspecified; E11.9 Type 2 diabetes mellitus without complications; Z79.84 Long term (current) use of oral hypoglycemic drugs | CPT/HCPCS: 93306 ==

== ENCOUNTER → 2020-08-25 08:56 | Outpatient (CLI) | payer MEDICARE, SELFPAY ==
--- NOTE | 2020-08-25 09:04 | XR_ITS ---
PROCEDURE: XR CHEST 2V CLINICAL HISTORY: HTN COMPARISON: CR XR CHEST 2V from 09/08/2019 CR XR CHEST PORTABLE PICC PLAC from 09/09/2019 CR XR CHEST PORTABLE from 07/12/2020 FINDINGS: The cardiomediastinal silhouette and pulmonary vascularity are within normal limits. The lungs are clear without infiltrates, suspicious nodules, or pleural effusions. On the lateral view there is a nodular opacity overlying the T9 vertebral body measuring 5 mm and may be due to summation artifact. This may be confirmed with follow-up. No acute bony abnormalities. IMPRESSION: No acute finding. Questionable nodular opacity overlying the T9 vertebral body on the lateral view. Follow-up may confirm stability Dictated by: Garfield Velasco MD 08/25/2020 16:03 Garfield Velasco MD in [place] 08/25/2020 16:03
--- NOTE | 2020-08-25 10:03 | ECG_ITS ---
APPROVED REPORT Exam: Resting ECG HR:68 bpm ECG Measurements Heart Rate 68 AXES MO 160 P 32 QRSd 88 QRS -66 QT 376 T 68 QTc 399 Conclusion Normal sinus rhythm Left axis deviation Anterior changes in V1 new since 08/[address] [facility] ecg Electronically signed by : Keo Bills, 08/26/2020 16:34:00
[2020-08-25 10:37] LABS: Blood Urea Nitrogen 22 mg/dl (9-20); Estimated Glomerular Filt Rate 64 ml/min (>60); GFR (African American) 77 ML/MIN (>60)
== END ==
PROVIDERS: PCP Physician Assistant; Visit Provider Podiatrist
DX: Z98.890 Other specified postprocedural states (principal)
CPT/HCPCS: 36415; 71046; 82565; 84520; 93005

== ENCOUNTER → 2020-09-07 14:14 | Outpatient (CLI) | payer MEDICARE, SELFPAY ==
[2020-09-07 14:28] LABS: Chloride 101 mmol/L (98-107); Potassium 5.3 mmoL/L (3.5-5.1); Sodium 139 mmol/L (136-145)
[2020-09-07 14:30] LABS: Alanine Aminotransferase 18 U/L (12-78); Albumin Level 4.9 g/dl (3.5-5.0); Albumin/Globulin Ratio 1.6 (1.1-1.8); Alkaline Phosphatase 66 U/L (38-126); Anion Gap 14.3 mEq/L (5-15); Aspartate Amino Transferase 29 U/L (17-59); Bilirubin,Total 0.5 mg/dl (0.2-1.3); Blood Urea Nitrogen 22 mg/dl (9-20); Carbon Dioxide 29 mmol/L (22.0-30.0); Estimated Glomerular Filt Rate 64 ml/min (>60); GFR (African American) 77 ML/MIN (>60); Globulin 3.1 g/dL (1.3-3.2)
[2020-09-07 14:31] LABS: Calcium 10.3 mg/dl (8.4-10.2); Chol/HDL Ratio 3.9 (1-3.5); Cholesterol 130 mg/dl (140-200); Glucose 145 mg/dl (74-100); HDL Cholesterol 33 mg/dl (40-60); Triglycerides 165 mg/dl (30-150); VLDL Cholesterol 33 mg/dL (0-40)
[2020-09-07 14:36] LABS: Basophils % 0.5 % (0.1-2.0); Eosinophils # 0.7 K/mm3 (0.0-0.4); Eosinophils % 9.4 % (0.1-12.0); Hematocrit 40.9 % (42.0-52.0); Hemoglobin 13.1 g/dL (14.1-18.0); Lymphocytes # 1.5 K/mm3 (0.7-4.5); Lymphocytes % 21.2 % (10-50); Mean Corpuscular Hemoglobin 26.4 pg (27.0-31.2); Mean Corpuscular Volume 82.7 fl (80-94); Mean Platelet Volume 7.9 fl (7.4-10.4); Monocytes # 0.6 K/mm3 (0.1-1.0); Monocytes % 8.8 % (1.7-9.3); Neutrophils # 4.3 K/mm3 (1.8-7.8); Neutrophils % 60.1 % (37.0-80.0); Platelet Count 428 K/mm3 (142-424); Red Blood Count 4.94 M/mm3 (4.60-6.20); Red Cell Distribution Width 14.1 % (11.5-17.5); White Blood Count 7.1 K/mm3 (4.8-10.8)
[2020-09-07 14:42] LABS: Direct LDL Cholesterol 60.94 mg/dL (100-129)
[2020-09-07 14:46] LABS: Hemoglobin A1C 7.2 % (4.0-6.0)
[2020-09-07 14:47] LABS: 25-OH Vitamin D, Total 50.9 ng/mL (30-100)
[2020-09-07 14:48] LABS: Free T4 (Free Thyroxine) 1.38 ng/dl (0.78-2.19)
[2020-09-07 15:01] LABS: Thyroid Stimulating Hormone 1.61 uIU/mL (0.465-4.68)
== END ==
PROVIDERS: Visit Provider Physician Assistant
DX: E55.9 Vitamin D deficiency, unspecified; E78.5 Hyperlipidemia, unspecified; E11.621 Type 2 diabetes mellitus with foot ulcer; L97.509 Non-pressure chronic ulcer of other part of unspecified foot with unspecified severity; Z79.84 Long term (current) use of oral hypoglycemic drugs
CPT/HCPCS: 80053; 80061; 82043; 82306; 83036; 84439; 84443; 85025

== ENCOUNTER → 2020-09-13 10:42 | Outpatient (CLI) | payer MEDICARE, SELFPAY ==
[2020-09-13 12:26] LABS: Coronavirus 19 IgG Antibody Positive (Negative); Coronavirus 19 IgM Antibody Negative (Negative)
== END ==
PROVIDERS: Visit Provider Podiatrist
DX: Z01.818 Encounter for other preprocedural examination (principal); Z20.822 Contact with and (suspected) exposure to COVID-19; L97.522 Non-pressure chronic ulcer of other part of left foot with fat layer exposed
CPT/HCPCS: 36415; 86328

== ENCOUNTER 2020-09-15 06:07 | Day surgery (SDC) | payer MEDICARE, SELFPAY ==
[2020-09-11 10:38] VITALS: BMI 30.6
[2020-09-15] VITALS (11 sets, daily range): BP systolic 111–153; BP diastolic 67–88; PULSE 67–77; RESP 16–18; TEMP 6.1–43; O2SAT 93–100
--- NOTE | 2020-09-15 06:56 | P.PN_ITS ---
[facility] Anesthesia Checklist - Patient Identification Patient Identification: Arm Band - Structural Data Admitted From: Home Planned Operative Procedure/s: LTA Consent for Planned Operative Procedure(s) Verified: Yes - NPO Status Verified Time NPO: 00:00 - Additional verifications Anesthesia Reactions: No Hx Blood Transfusions: No Blood Transfusion Reaction: No - Airway Assessment C-Spine Mobility Assessed: Yes TMJ Mobility Assessed: Yes Dentition: Good Dentition - Neurological Assessment Level of Consciousness: Awake, Alert Hx Seizures: No Numbness or tingling in extremities: No - Anesthesia Plan Anesthesia Risk discussed: Yes Anesthesia Plan: Verified ASA Class: II Anesthesia Type: General [facility] History I have reviewed the patient's past medical history: Yes Medical History: Reports:: Diabetes Mellitus Type 2 (CG 110), Hyperlipidemia, Hypertension Denies:: Cancer, Diabetes Mellitus Type 1, Internal Pacemaker, MRSA, Seizures *Have you ever received a pneumonia vaccine?: No *Have you received a flu vaccine this season?: Yes Other Medical History: Reports: Other. Denies: Blood Transfusion Reaction Anesthesia experience/problems:: None Laterality Cases: Left: Arthroscopy Knee, Bilateral: Other Other Surgeries: Yes: No Previous Surgery, Cardiac Catheterization, Other. No: Pacemaker Amputation: Yes (bilateral toes) Fractures: Yes (left Patella Fracture) - *Social History Last grade of school completed: Some college Smoking Status: Current some day smoker Tobacco Type: cigars Alcohol Intake: current Alcohol Intake Frequency:: holidays/special occasions only Substance Use Type: denies use *Occupational Status:: employed Housing: house Household Members: spouse *Travel in the last 8 weeks: None Family Hx:: Diabetes, Hypertension
[2020-09-15 07:06] LABS: POC Glucose,Bedside 110 (70-110)
--- NOTE | 2020-09-15 07:31 | HMH.OPNOTE ---
Date of procedure: 09/15/20 Pre-op Diagnosis:: 1. Left foot (sub 3rd metatarsal) diabetic ulcer 2. Left foot infection 3. Left equinus deformity 4. Left hammertoes 5. History of previous left 4-5th partial ray amputation Post-op Diagnosis:: Same Procedure performed:: 1. Left foot transmetatarsal amputation 2. Left tendoachilles lengthening 3. Left excision of diabetic ulcer 4. Left derotational skin flap 5. Application of ERIC drain 6. Application of posterior splint Surgeon:: Marybeth Ruelas DPM [facility]:: Other (Mayela Blakely) Anesthesia: local (30cc 0.5% marcaine plain), LMA Estimated blood loss (mL): 20 Clinical Note:: Patient is a 50-year-old diabetic male who presents with a left subthird metatarsal ulcer. He previously had a fourth and fifth partial ray resection several years ago which resulted in uneven parabola leading to increased pressure to the third metatarsal. 09/09/2019 patient had a right transmetatarsal amputation and Achilles tendon lengthening which healed without complication. He was on vancomycin via PICC line. Patient currently has no signs of infection although has had positive left foot cultures including MRSA, Pseudomonas and Enterococcus. I discussed with the patient the importance of proper hygiene and maintaining a clean healthy wound bed to avoid the infection spreading. X-rays 3 views weightbearing left foot taken 08/08/2020 evaluated and show no evidence of acute osteomyelitis. We discussed conservative versus surgical treatment options. Conservative treatment options include local wound care, oral and IV antibiotics, change in shoe wear, taping/padding, and off-loading. We discussed surgical intervention for amputation of the left partial foot. Patient understands that there is a chance that the foot may change shape after surgery. Patient also understands that they could have wound healing complications including delayed healing and infection. We discussed that if the wound does not heal, it is possible that they may need a more proximal amputation and could result in further loss of digits, loss of partial foot or loss of leg. We discussed the risks and benefits in great detail. Other surgical risks include: prolonged pain and swelling, further infection requiring oral or IV antibiotics, delay in healing of soft tissue or bone, nerve or blood vessel damage, CRPS/RSD, DVT, anesthesia complications, and even . All questions answered. Consent obtained. Preoperative labs reviewed. Last H A1c 7.2%. Plan for ESR and CRP day of surgery. Medical clearance per Antonio Mendoza. Operative findings:: Left foot had a previous partial fourth and fifth ray amputation. The second and third digits were contracted. There was a subthird metatarsal ulcers noted. No lanie purulence. Clear serous drainage from the sub-third metatarsal ulcer noted. Equinus deformity. The fourth metatarsal bone was hard with irregularity at the level of the amputation site. There were no obvious met heads erosions. No sinus tracking or deep purulence. No obvious signs of osteomyelitis noted to the 1-3rd metatarsals. Operative note:: On this date and time patient was deemed an appropriate surgical candidate. With informed consent signed, the patient was taken to the operating theater. The patient was positioned supine. LMA anesthesia was induced. Left mid calf tourniquet used @225mmHg. The left lower extremity was prepped and draped in normal sterile fashion. Cefepime 1g infused. Leftt tendo Achilles lengthening: Utilizing a 15 blade stab incision was made x3 in the distal posterior leg. Utilizing the three holes, percutaneous randi-section of the Achilles was performed with the foot maximally dorsiflexed. Release of the Achilles contracture was noted. The incisions were flushed with copious amounts of sterile saline and the wound was closed with Prolene. Left transmetatarsal amputation, excision of diabetic ulcer: 30cc 0.5% marcaine plain was injected at t
--- NOTE | 2020-09-15 07:56 | XR_ITS ---
PROCEDURE: XR FOOT LT 2V CLINICAL INDICATION: TRANSMETATARSAL AMPUTATION COMPARISON: CR XR FOOT RT MIN 3V from 09/09/2019 CR XR FOOT WT BEARING RT 3V from 11/02/2019 CR XR FOOT WT BEARING LT 3V from 02/08/2020 CR XR FOOT WT BEARING LT 3V from 08/08/2020 FINDINGS: Single fluoroscopic image demonstrates transmetatarsal amputation of the 4th and 5th digits. No other abnormality detected. IMPRESSION: Transmetatarsal amputation of the 4th and 5th digits. Dictated by: Meera Moe 09/15/2020 11:19 Meera Moe in [facility] 09/15/2020 11:19
--- NOTE | 2020-09-15 09:00 | XR_ITS ---
PROCEDURE: XR FOOT LT MIN 3V CLINICAL INDICATION: Post op amp COMPARISON: CR XR FOOT WT BEARING RT 3V from 11/02/2019 CR XR FOOT WT BEARING LT 3V from 02/08/2020 CR XR FOOT WT BEARING LT 3V from 08/08/2020 CR XR FOOT LT 2V from 09/15/2020 FINDINGS: Transmetatarsal amputation is noted. The presence of the drain is noted at the surgical site. IMPRESSION: Transmetatarsal amputation of the left foot. Dictated by: Meera Moe 09/15/2020 12:57 Meera Moe in [facility] 09/15/2020 12:57
--- NOTE | 2020-09-15 09:32 | P.PN_ITS ---
[facility] Anesthesia Record Part I Intake, IV Amount: 200 Estimated blood loss (mL): 20 Urine output (mL): 0 Blood Pressure: 132/75 SaO2: 95 Pulse Rate: 67 Respiratory Rate: 16 Temperature: 98.7 F Patient is:: Drowsy, Oral/Nasal airway Stable to PACU at:: 09:28
[2020-09-15 10:36] LABS: C-Reactive Protein 1.9 mg/L (0-4)
[2020-09-15 11:06] LABS: Erythrocyte Sedimentation Rate 20 mm/hr (0-20)
--- NOTE | 2020-09-18 07:37 | P.PN_ITS ---
[facility] Anesthesia Record Part II Discharge Time: 10:08 Destination: Surgical Day Care (OP Surgery) PACU nurse assessment reviewed?: Yes Patient Condition:: Good Anesthesia Complications:: None Swallowing reflex intact?: Yes Cyanosis?: No Blood Pressure: 131/67 Pulse Rate: 74 Temperature: 98.7 F Mental Status: Alert & Oriented Pain level:: 0 Nausea and/or vomitting:: None Intake, IV Amount: 0
[2020-09-18 07:38] VITALS: BP 131/67; PULSE 74; TEMP 37.1
== END 2020-09-15 10:42 | disposition home or self-care (01) ==
LOC: OR 06:09
PROVIDERS: PCP Physician Assistant; Visit Provider Podiatrist
PROC: (CPT 27606; principal; 2020-09-15 07:30)
DX: E11.621 Type 2 diabetes mellitus with foot ulcer (principal); L97.522 Non-pressure chronic ulcer of other part of left foot with fat layer exposed; E11.40 Type 2 diabetes mellitus with diabetic neuropathy, unspecified; Z86.14 Personal history of Methicillin resistant Staphylococcus aureus infection; Z79.84 Long term (current) use of oral hypoglycemic drugs; Z79.899 Other long term (current) drug therapy; Z79.82 Long term (current) use of aspirin; I10 Essential (primary) hypertension; E78.5 Hyperlipidemia, unspecified; Z89.422 Acquired absence of other left toe(s); Z89.421 Acquired absence of other right toe(s)
CPT/HCPCS: 27606; 28805; 36415; 73620; 73630; 76000; 82962; 85651; 86140; 87070; 87075; 87077; 87186; 87205; 88305; 88311; 96374; J0692; J2405; J3370

== ENCOUNTER → 2020-09-21 09:48 | Outpatient (CLI) | payer MEDICARE, SELFPAY | PROVIDERS: Visit Provider Nurse Practitioner | DX: Z98.890 Other specified postprocedural states (principal); E11.621 Type 2 diabetes mellitus with foot ulcer; L97.522 Non-pressure chronic ulcer of other part of left foot with fat layer exposed | CPT/HCPCS: 87070; 87205 ==

== ENCOUNTER → 2020-10-19 08:09 | Outpatient (CLI) | payer MEDICARE, SELFPAY ==
[2020-10-19 08:38] LABS: Basophils # 0.1 K/mm3 (0-0.2); Basophils % 0.7 % (0.1-2.0); Eosinophils # 0.8 K/mm3 (0.0-0.4); Eosinophils % 11.5 % (0.1-12.0); Hematocrit 40.5 % (42.0-52.0); Hemoglobin 12.9 g/dL (14.1-18.0); Lymphocytes # 1.7 K/mm3 (0.7-4.5); Lymphocytes % 23.9 % (10-50); Mean Corpuscular HGB Conc 31.8 g/dL (31.8-35.4); Mean Corpuscular Hemoglobin 26.1 pg (27.0-31.2); Mean Platelet Volume 7.3 fl (7.4-10.4); Monocytes # 0.5 K/mm3 (0.1-1.0); Monocytes % 7.4 % (1.7-9.3); Neutrophils % 56.5 % (37.0-80.0); Platelet Count 315 K/mm3 (142-424); Red Blood Count 4.93 M/mm3 (4.60-6.20); Red Cell Distribution Width 14.2 % (11.5-17.5)
[2020-10-19 09:07] LABS: Chloride 101 mmol/L (98-107); Potassium 4.9 mmoL/L (3.5-5.1); Sodium 139 mmol/L (136-145)
[2020-10-19 09:09] LABS: Blood Urea Nitrogen 35 mg/dl (9-20); Estimated Glomerular Filt Rate 58 ml/min (>60); GFR (African American) 70 ML/MIN (>60)
[2020-10-19 09:10] LABS: Alanine Aminotransferase 24 U/L (12-78); Albumin Level 4.8 g/dl (3.5-5.0); Albumin/Globulin Ratio 1.7 (1.1-1.8); Alkaline Phosphatase 55 U/L (38-126); Anion Gap 16.9 mEq/L (5-15); Aspartate Amino Transferase 27 U/L (17-59); Bilirubin,Total 0.4 mg/dl (0.2-1.3); Calcium 10.2 mg/dl (8.4-10.2); Carbon Dioxide 26 mmol/L (22.0-30.0); Globulin 2.9 g/dL (1.3-3.2); Glucose 112 mg/dl (74-100); Total Protein,Serum 7.7 g/dl (6.3-8.2)
[2020-10-19 09:15] LABS: C-Reactive Protein 1.2 mg/L (0-4)
[2020-10-19 09:45] LABS: Erythrocyte Sedimentation Rate 17 mm/hr (0-20)
== END ==
PROVIDERS: Visit Provider Podiatrist
DX: Z98.890 Other specified postprocedural states (principal); R11.2 Nausea with vomiting, unspecified
CPT/HCPCS: 36415; 80053; 85025; 85651; 86140

== ENCOUNTER → 2020-11-09 08:21 | Outpatient (CLI) | payer MEDICARE, SELFPAY ==
[2020-11-09 08:28] LABS: Microscopic, Urine URINE MICROSCOPIC (MICROSCOPIC)
[2020-11-09 08:53] LABS: Basophils # 0.1 K/mm3 (0-0.2); Basophils % 0.6 % (0.1-2.0); Eosinophils # 0.8 K/mm3 (0.0-0.4); Eosinophils % 9.7 % (0.1-12.0); Hemoglobin 12.6 g/dL (14.1-18.0); Lymphocytes # 1.6 K/mm3 (0.7-4.5); Lymphocytes % 21.2 % (10-50); Mean Corpuscular HGB Conc 31.5 g/dL (31.8-35.4); Mean Corpuscular Hemoglobin 25.6 pg (27.0-31.2); Mean Corpuscular Volume 81.1 fl (80-94); Mean Platelet Volume 7.4 fl (7.4-10.4); Monocytes # 0.4 K/mm3 (0.1-1.0); Monocytes % 5.3 % (1.7-9.3); Neutrophils # 4.9 K/mm3 (1.8-7.8); Neutrophils % 63.2 % (37.0-80.0); Platelet Count 399 K/mm3 (142-424); Red Blood Count 4.94 M/mm3 (4.60-6.20); White Blood Count 7.7 K/mm3 (4.8-10.8)
[2020-11-09 09:04] LABS: Albumin Level 4.7 g/dl (3.5-5.0); Anion Gap 13.9 mEq/L (5-15); Blood Urea Nitrogen 25 mg/dl (9-20); Calcium 9.7 mg/dl (8.4-10.2); Carbon Dioxide 27 mmol/L (22.0-30.0); Chloride 101 mmol/L (98-107); Estimated Glomerular Filt Rate 64 ml/min (>60); GFR (African American) 77 ML/MIN (>60); Glucose 139 mg/dl (74-100); Phosphorous 3.6 mg/dl (2.5-4.5); Potassium 4.9 mmoL/L (3.5-5.1); Sodium 137 mmol/L (136-145)
[2020-11-09 09:16] LABS: Intact Parathyroid Hormone 28.6 pg/mL (7.5-53.5)
[2020-11-09 09:22] LABS: 25-OH Vitamin D, Total 65.1 ng/mL (30-100)
[2020-11-09 09:36] LABS: Appearance,Urine CLEAR (Clear); Bilirubin,Urine Negative (Negative); Blood, Urine Negative (Negative); Color,Urine YELLOW (Yellow); Glucose,Urine (UA) Negative (Negative); Ketones,Urine Negative (Negative); Leukocyte Esterase,Urine Negative (Negative); Nitrate,Urine Negative (Negative); Protein,Urine Negative (Negative); Specific Gravity, Urine 1.015 (1.005-1.030); Urobilinogen,Urine 0.2 EU/dl (0.2)
[2020-11-09 12:00] LABS: Creatinine,Urine Random 65 mg/dL (Not Estab.)
[2020-11-09 12:04] LABS: Microalbumin/Creatinine Ratio 25.8
== END ==
PROVIDERS: Visit Provider Internal Medicine Nephrology
DX: R80.9 Proteinuria, unspecified (principal); Z68.31 Body mass index [BMI] 31.0-31.9, adult
CPT/HCPCS: 36415; 80069; 81001; 82043; 82306; 82570; 83970; 84155; 85025

== ENCOUNTER → 2020-11-16 12:40 | Outpatient (POV) | payer MEDICARE, SELFPAY | PROVIDERS: Visit Provider Internal Medicine Nephrology | DX: Z00.00 Encounter for general adult medical examination without abnormal findings (principal) ==

== ENCOUNTER → 2021-02-15 16:49 | Outpatient (CLI) | payer MEDICARE, SELFPAY ==
[2021-02-15 17:50] LABS: Basophils # 0.1 K/mm3 (0-0.2); Basophils % 0.7 % (0.1-2.0); Eosinophils # 0.8 K/mm3 (0.0-0.4); Eosinophils % 8.6 % (0.1-12.0); Hematocrit 42.5 % (42.0-52.0); Hemoglobin 12.9 g/dL (14.1-18.0); Lymphocytes # 1.9 K/mm3 (0.7-4.5); Mean Corpuscular HGB Conc 30.4 g/dL (31.8-35.4); Mean Corpuscular Hemoglobin 26.2 pg (27.0-31.2); Mean Corpuscular Volume 86.2 fl (80-94); Mean Platelet Volume 8.4 fl (7.4-10.4); Monocytes # 0.6 K/mm3 (0.1-1.0); Monocytes % 6.6 % (1.7-9.3); Neutrophils # 5.7 K/mm3 (1.8-7.8); Platelet Count 443 K/mm3 (142-424); Red Blood Count 4.94 M/mm3 (4.60-6.20); Red Cell Distribution Width 14.1 % (11.5-17.5); White Blood Count 9.1 K/mm3 (4.8-10.8)
[2021-02-15 18:26] LABS: Alanine Aminotransferase 21 U/L (12-78); Albumin Level 4.5 g/dl (3.5-5.0); Albumin/Globulin Ratio 1.4 (1.1-1.8); Alkaline Phosphatase 58 U/L (38-126); Anion Gap 19.2 mEq/L (5-15); Aspartate Amino Transferase 29 U/L (17-59); Bilirubin,Total 0.2 mg/dl (0.2-1.3); Blood Urea Nitrogen 27 mg/dl (9-20); Calcium 9.7 mg/dl (8.4-10.2); Carbon Dioxide 26 mmol/L (22.0-30.0); Chloride 100 mmol/L (98-107); Chol/HDL Ratio 3.4 (1-3.5); Cholesterol 140 mg/dl (140-200); Estimated Glomerular Filt Rate 58 ml/min (>60); GFR (African American) 70 ML/MIN (>60); Globulin 3.3 g/dL (1.3-3.2); Glucose 76 mg/dl (74-100); HDL Cholesterol 41 mg/dl (40-60); Potassium 5.2 mmoL/L (3.5-5.1); Sodium 140 mmol/L (136-145); Total Protein,Serum 7.8 g/dl (6.3-8.2); Triglycerides 251 mg/dl (30-150); VLDL Cholesterol 50 mg/dL (0-40)
[2021-02-15 18:38] LABS: Direct LDL Cholesterol 66.19 mg/dL (100-129)
[2021-02-15 18:43] LABS: Free T4 (Free Thyroxine) 1.24 ng/dl (0.78-2.19)
[2021-02-15 18:58] LABS: Thyroid Stimulating Hormone 1.35 uIU/mL (0.465-4.68)
[2021-02-15 19:23] LABS: Hemoglobin A1C 6.7 % (4.0-6.0)
== END ==
PROVIDERS: Visit Provider Physician Assistant
DX: I25.10 Atherosclerotic heart disease of native coronary artery without angina pectoris; E78.5 Hyperlipidemia, unspecified; E55.9 Vitamin D deficiency, unspecified; E11.621 Type 2 diabetes mellitus with foot ulcer; L97.529 Non-pressure chronic ulcer of other part of left foot with unspecified severity; Z79.4 Long term (current) use of insulin; Z72.0 Tobacco use; I11.9 Hypertensive heart disease without heart failure
CPT/HCPCS: 80053; 80061; 82306; 83036; 84439; 84443; 85025

== ENCOUNTER → 2021-02-27 09:34 | Outpatient (CLI) | payer MEDICARE, SELFPAY | PROVIDERS: PCP Physician Assistant; Visit Provider Physician Assistant | DX: Z20.822 Contact with and (suspected) exposure to COVID-19 (principal) | CPT/HCPCS: C9803; U0003; U0005 ==

== ENCOUNTER → 2021-03-12 09:30 | Outpatient (CLI) | payer MEDICARE, SELFPAY | PROVIDERS: Visit Provider Surgery | DX: Z01.812 Encounter for preprocedural laboratory examination (principal); Z11.52 Encounter for screening for COVID-19; U07.1 COVID-19 | CPT/HCPCS: C9803; U0003; U0005 ==

== ENCOUNTER → 2021-03-26 09:20 | Outpatient (CLI) | payer MEDICARE, SELFPAY | PROVIDERS: Visit Provider Surgery | DX: Z01.812 Encounter for preprocedural laboratory examination (principal); Z11.52 Encounter for screening for COVID-19; Z12.11 Encounter for screening for malignant neoplasm of colon | CPT/HCPCS: C9803; U0003; U0005 ==

== ENCOUNTER 2021-03-28 07:35 | Day surgery (SDC) | payer MEDICARE, SELFPAY ==
[2021-03-26 13:40] VITALS: BMI 31.1
[2021-03-28] VITALS (7 sets, daily range): BP systolic 98–129; BP diastolic 59–76; PULSE 53–69; RESP 18; TEMP 36.2–36.4; O2SAT 95–98
[2021-03-28 08:12] LABS: POC Glucose,Bedside 96 (70-110)
--- NOTE | 2021-03-28 08:18 | HMH.ANESCL ---
[facility] Anesthesia Checklist - Patient Identification Patient Identification: Arm Band - Structural Data Admitted From: Home Planned Operative Procedure/s: colonoscopy Consent for Planned Operative Procedure(s) Verified: Yes Verified Documents: Surgical Consent, History and Physical - NPO Status Verified Time NPO: 00:00 - Additional verifications Anesthesia Reactions: No Hx Blood Transfusions: No Blood Transfusion Reaction: No - Airway Assessment C-Spine Mobility Assessed: Yes (mp2) TMJ Mobility Assessed: Yes Dentition: Good Dentition - Neurological Assessment Level of Consciousness: Awake, Alert - Anesthesia Plan Anesthesia Risk discussed: Yes Anesthesia Plan: Verified ASA Class: III Anesthesia Type: MAC [facility] History I have reviewed the patient's past medical history: Yes Medical History: Reports:: Diabetes Mellitus Type 2, Hyperlipidemia, Hypertension Denies:: Cancer, Diabetes Mellitus Type 1, Internal Pacemaker, MRSA, Seizures *Have you ever received a pneumonia vaccine?: No *Have you received a flu vaccine this season?: No Other Medical History: Reports: Other. Denies: Blood Transfusion Reaction Anesthesia experience/problems:: nac Laterality Cases: Left: Arthroscopy Knee, Bilateral: Other Other Surgeries: Yes: Cardiac Catheterization, Other. No: Pacemaker Amputation: Yes (bilateral toes) Fractures: Yes (left Patella Fracture) - *Social History Last grade of school completed: Some college Smoking Status: Current some day smoker Tobacco Type: cigars # Packs/Day (cigarettes): 0 Alcohol Intake: current Alcohol Intake Frequency:: a few times a week Substance Use Type: denies use *Occupational Status:: disabled Housing: house Household Members: spouse *Travel in the last 8 weeks: Outside the [facility] Family Hx:: Diabetes
--- NOTE | 2021-03-28 08:54 | HMH.SCOPE ---
- Procedure: Date: 03/28/21 Patient Date of :: 1970 Procedure Performed:: Total colonoscopy to terminal ileum Indications:: Patient is a 50-year-old male from [place] with history of diabetes with previous bilateral amputations, coronary artery disease, hypertension, hyperlipidemia, COPD. He has positive Cologuard. Never had prior screening colonoscopy. Reportedly equivocal Cologuard. Performing Provider:: Kali Christie MD Referring Provider:: Princess Grimes Sedation:: MAC sedation Procedure:: Patient was taken to endoscopy procedure room. He was positioned in lateral decubitus position. Adequate intravenous sedation was achieved with anesthesia titration of propofol. Variable stiffness Olympus colonoscope was inserted via the anus. Is advanced to the cecum. Colonic preparation was fair to poor. There was chalky particulate liquid stool throughout the colon. There was also undigested vegetable matter obscuring portions of the colon, particularly portion of the cecum. Thorough irrigation and suctioning was performed throughout. Colonoscope was slowly withdrawn through the colon. There were no obvious large polyps or masses noted. Retroflexion within the rectum revealed no obvious pathologic internal hemorrhoids. Colonoscope was withdrawn. Findings:: Poor colonic preparation with particulate chalky stool throughout the colon and undigested vegetable matter debris No obvious large polyps or masses Recommendations:: Repeat colonoscopy 1 year with 2-day bowel preparation and low residue diet for up to 1 week leading up to the procedure Complications:: None immediately apparent Estimated blood obtained (mL): 0
== END 2021-03-28 09:33 | disposition home or self-care (01) ==
LOC: OUTP 07:37
PROVIDERS: PCP Physician Assistant; Visit Provider Surgery
PROC: 0DJD8ZZ Inspection of Lower Intestinal Tract, Via Natural or Artificial Opening Endoscopic (ICD-10-PCS; principal; 2021-03-28 08:30)
DX: R19.5 Other fecal abnormalities (principal); E11.9 Type 2 diabetes mellitus without complications; Z89.422 Acquired absence of other left toe(s); I25.10 Atherosclerotic heart disease of native coronary artery without angina pectoris; I10 Essential (primary) hypertension; E78.5 Hyperlipidemia, unspecified; J44.9 Chronic obstructive pulmonary disease, unspecified; Z79.84 Long term (current) use of oral hypoglycemic drugs; Z79.899 Other long term (current) drug therapy
CPT/HCPCS: 45378; 82962

== ENCOUNTER → 2021-04-16 08:36 | Outpatient (CLI) | payer MEDICARE, SELFPAY ==
--- NOTE | 2021-04-16 08:41 | XR_ITS ---
PROCEDURE: XR FOOT WT BEARING LT 3V CLINICAL INDICATION: WOUND COMPARISON: CR XR FOOT WT BEARING LT 3V from 02/08/2020 CR XR FOOT WT BEARING LT 3V from 08/08/2020 CR XR FOOT LT 2V from 09/15/2020 CR XR FOOT LT MIN 3V from 09/15/2020 FINDINGS: Status post transmetatarsal amputation. The splint has been removed. No evidence of bony erosive change at the amputation sites. No soft tissue gas. The joint spaces are well-preserved. No significant degenerative/arthritic changes. No erosive changes evident. Other findings:None. IMPRESSION: Status post transmetatarsal amputation with no evidence of acute osteomyelitis Dictated by: Garfield Velasco MD 04/16/2021 10:41 Garfield Velasco MD in [facility] 04/16/2021 10:41
[2021-04-16 09:16] LABS: Basophils % 0.5 % (0.1-2.0); Eosinophils # 0.8 K/mm3 (0.0-0.4); Eosinophils % 9.1 % (0.1-12.0); Hematocrit 41.9 % (42.0-52.0); Hemoglobin 13.1 g/dL (14.1-18.0); Lymphocytes # 1.6 K/mm3 (0.7-4.5); Lymphocytes % 18.6 % (10-50); Mean Corpuscular HGB Conc 31.2 g/dL (31.8-35.4); Mean Corpuscular Volume 86.5 fl (80-94); Mean Platelet Volume 7.8 fl (7.4-10.4); Monocytes # 0.6 K/mm3 (0.1-1.0); Monocytes % 6.8 % (1.7-9.3); Neutrophils # 5.6 K/mm3 (1.8-7.8); Platelet Count 411 K/mm3 (142-424); Red Blood Count 4.85 M/mm3 (4.60-6.20); Red Cell Distribution Width 13.6 % (11.5-17.5); White Blood Count 8.6 K/mm3 (4.8-10.8)
[2021-04-16 09:46] LABS: Erythrocyte Sedimentation Rate 10 mm/hr (0-20)
[2021-04-16 10:00] LABS: Alanine Aminotransferase 27 U/L (12-78); Albumin Level 4.2 g/dl (3.5-5.0); Albumin/Globulin Ratio 1.4 (1.1-1.8); Alkaline Phosphatase 54 U/L (38-126); Anion Gap 16.1 mEq/L (5-15); Aspartate Amino Transferase 33 U/L (17-59); Bilirubin,Total 0.3 mg/dl (0.2-1.3); Blood Urea Nitrogen 22 mg/dl (9-20); Calcium 9.5 mg/dl (8.4-10.2); Carbon Dioxide 26 mmol/L (22.0-30.0); Chloride 102 mmol/L (98-107); Estimated Glomerular Filt Rate 71 ml/min (>60); GFR (African American) 85 ML/MIN (>60); Globulin 3.1 g/dL (1.3-3.2); Glucose 180 mg/dl (74-100); Potassium 5.1 mmoL/L (3.5-5.1); Sodium 139 mmol/L (136-145); Total Protein,Serum 7.3 g/dl (6.3-8.2)
[2021-04-16 10:04] LABS: C-Reactive Protein 1.6 mg/L (0-4)
[2021-04-16 10:15] LABS: Hemoglobin A1C 6.6 % (4.0-6.0)
== END ==
PROVIDERS: PCP Physician Assistant; Visit Provider Podiatrist
DX: Z51.89 Encounter for other specified aftercare (principal); R11.2 Nausea with vomiting, unspecified; E11.621 Type 2 diabetes mellitus with foot ulcer; L97.529 Non-pressure chronic ulcer of other part of left foot with unspecified severity; Z79.84 Long term (current) use of oral hypoglycemic drugs
CPT/HCPCS: 36415; 73630; 80053; 83036; 85025; 85651; 86140

== ENCOUNTER → 2022-01-28 06:09 | Outpatient (CLI) | payer MEDICARE, SELFPAY ==
[2022-01-28 16:31] LABS: Alanine Aminotransferase 32 U/L (12-78); Albumin Level 4.3 g/dl (3.5-5.0); Albumin/Globulin Ratio 1.5 (1.1-1.8); Alkaline Phosphatase 62 U/L (38-126); Anion Gap 14.1 mEq/L (5-15); Aspartate Amino Transferase 35 U/L (17-59); Bilirubin,Total 0.5 mg/dl (0.2-1.3); Blood Urea Nitrogen 24 mg/dl (9-20); Calcium 9.8 mg/dl (8.4-10.2); Carbon Dioxide 27 mmol/L (22.0-30.0); Chloride 103 mmol/L (98-107); Chol/HDL Ratio 3.8 (1-3.5); Cholesterol 107 mg/dl (140-200); Estimated Glomerular Filt Rate 78 ml/min (>60); GFR (African American) 95 ML/MIN (>60); Globulin 2.9 g/dL (1.3-3.2); Glucose 105 mg/dl (74-100); HDL Cholesterol 28 mg/dl (40-60); Potassium 5.1 mmoL/L (3.5-5.1); Sodium 139 mmol/L (136-145); Total Protein,Serum 7.2 g/dl (6.3-8.2); Triglycerides 133 mg/dl (30-150); VLDL Cholesterol 27 mg/dL (0-40)
[2022-01-28 16:36] LABS: Basophils # 0.1 K/mm3 (0-0.2); Eosinophils # 0.8 K/mm3 (0.0-0.4); Eosinophils % 10.6 % (0.1-12.0); Hematocrit 40.3 % (42.0-52.0); Hemoglobin 12.9 g/dL (14.1-18.0); Lymphocytes # 1.6 K/mm3 (0.7-4.5); Lymphocytes % 21.9 % (10-50); Mean Corpuscular HGB Conc 31.9 g/dL (31.8-35.4); Mean Corpuscular Hemoglobin 27.2 pg (27.0-31.2); Mean Corpuscular Volume 85.2 fl (80-94); Mean Platelet Volume 8.7 fl (7.4-10.4); Monocytes # 0.5 K/mm3 (0.1-1.0); Monocytes % 7.1 % (1.7-9.3); Neutrophils # 4.4 K/mm3 (1.8-7.8); Neutrophils % 59.4 % (37.0-80.0); Platelet Count 405 K/mm3 (142-424); Red Blood Count 4.73 M/mm3 (4.60-6.20); White Blood Count 7.4 K/mm3 (4.8-10.8)
[2022-01-28 16:48] LABS: 25-OH Vitamin D, Total 67.8 ng/mL (30-100)
[2022-01-28 17:02] LABS: Prostate Specific Ag Screen 0.3 ng/ml (0.0-4.0); Thyroid Stimulating Hormone 1.16 uIU/mL (0.465-4.68)
[2022-01-30 09:39] LABS: Direct LDL Cholesterol 54 mg/dL (100-129)
== END ==
PROVIDERS: PCP Physician Assistant; Visit Provider Physician Assistant
DX: E11.9 Type 2 diabetes mellitus without complications (principal); Z12.5 Encounter for screening for malignant neoplasm of prostate; Z00.00 Encounter for general adult medical examination without abnormal findings; E55.9 Vitamin D deficiency, unspecified; Z79.84 Long term (current) use of oral hypoglycemic drugs
CPT/HCPCS: 80053; 80061; 82043; 82306; 83036; 84443; 85025; G0103

== ENCOUNTER → 2022-02-25 16:19 | Outpatient (CLI) | payer MEDICARE, SELFPAY | PROVIDERS: PCP Physician Assistant; Visit Provider Nurse Practitioner Family | DX: E11.621 Type 2 diabetes mellitus with foot ulcer (principal); L97.511 Non-pressure chronic ulcer of other part of right foot limited to breakdown of skin ==

== ENCOUNTER → 2022-02-26 08:14 | Outpatient (CLI) | payer MEDICARE, SELFPAY ==
--- NOTE | 2022-02-26 08:29 | XR_ITS ---
FINAL REPORT CLINICAL HISTORY: WOUND COMPARISON: April 16, 2021 FINDINGS: RIGHT FOOT Three weight-bearing views of the right foot demonstrate postoperative changes from transmetatarsal amputation. There is no acute fracture or dislocation. There is no acute bony erosion. The visualized joint spaces are normally aligned. There are mild degenerative changes. The soft tissues are unremarkable. IMPRESSION: Postoperative change. No acute bony erosion. Reviewed, Interpreted and Dictated by Kali Lemos III, MD Transcribed by Dolly Nicholson Authenticated and [facility]
[2022-02-26 09:25] LABS: Basophils # 0.1 K/mm3 (0-0.2); Basophils % 1.2 % (0.1-2.0); Eosinophils # 0.8 K/mm3 (0.0-0.4); Hematocrit 42.7 % (42.0-52.0); Hemoglobin 13.2 g/dL (14.1-18.0); Lymphocytes # 1.9 K/mm3 (0.7-4.5); Lymphocytes % 20.1 % (10-50); Mean Corpuscular Hemoglobin 26.8 pg (27.0-31.2); Mean Corpuscular Volume 86.3 fl (80-94); Mean Platelet Volume 7.4 fl (7.4-10.4); Monocytes # 0.5 K/mm3 (0.1-1.0); Monocytes % 5.4 % (1.7-9.3); Neutrophils # 6.1 K/mm3 (1.8-7.8); Neutrophils % 64.3 % (37.0-80.0); Platelet Count 438 K/mm3 (142-424); Red Blood Count 4.95 M/mm3 (4.60-6.20); Red Cell Distribution Width 13.6 % (11.5-17.5); White Blood Count 9.4 K/mm3 (4.8-10.8)
[2022-02-26 09:43] LABS: Alanine Aminotransferase 33 U/L (12-78); Albumin Level 4.2 g/dl (3.5-5.0); Albumin/Globulin Ratio 1.4 (1.1-1.8); Alkaline Phosphatase 81 U/L (38-126); Anion Gap 19.4 mEq/L (5-15); Aspartate Amino Transferase 33 U/L (17-59); Bilirubin,Total 0.2 mg/dl (0.2-1.3); Blood Urea Nitrogen 27 mg/dl (9-20); Calcium 9.3 mg/dl (8.4-10.2); Carbon Dioxide 28 mmol/L (22.0-30.0); Chloride 96 mmol/L (98-107); Estimated Glomerular Filt Rate 58 ml/min (>60); GFR (African American) 70 ML/MIN (>60); Glucose 206 mg/dl (74-100); Potassium 5.4 mmoL/L (3.5-5.1); Sodium 138 mmol/L (136-145); Total Protein,Serum 7.2 g/dl (6.3-8.2)
[2022-02-26 10:06] LABS: Erythrocyte Sedimentation Rate 12 mm/hr (0-20)
== END ==
PROVIDERS: PCP Physician Assistant; Visit Provider Nurse Practitioner Family
DX: E11.621 Type 2 diabetes mellitus with foot ulcer (principal); Z51.89 Encounter for other specified aftercare; L97.519 Non-pressure chronic ulcer of other part of right foot with unspecified severity; Z79.84 Long term (current) use of oral hypoglycemic drugs
CPT/HCPCS: 36415; 73630; 80053; 85025; 85651; 86140

== ENCOUNTER → 2022-03-06 10:10 | Outpatient (CLI) | payer MEDICARE, SELFPAY | PROVIDERS: PCP Physician Assistant; Visit Provider Surgery | DX: U07.1 COVID-19 (principal) | CPT/HCPCS: C9803; U0003; U0005 ==

== ENCOUNTER → 2022-04-01 08:52 | Outpatient (CLI) | payer MEDICARE, SELFPAY ==
--- NOTE | 2022-04-01 09:17 | XR_ITS ---
FINAL REPORT CLINICAL HISTORY: ulcer of foot COMPARISON: 02/26/2022 FINDINGS: RIGHT FOOT Three views of the right foot were obtained. There are postoperative changes of trans metatarsal amputation. There are mild degenerative changes. There is no acute fracture or dislocation. Visualized joint spaces are normally aligned. Soft tissues are unremarkable. IMPRESSION: No acute bony abnormality. Reviewed, Interpreted and Dictated by Kali Lemos III, MD Transcribed by Christina Loyd Authenticated and [facility]
[2022-04-01 09:30] LABS: Basophils # 0.1 K/mm3 (0-0.2); Basophils % 0.7 % (0.1-2.0); Eosinophils # 0.6 K/mm3 (0.0-0.4); Eosinophils % 7.3 % (0.1-12.0); Hematocrit 39.9 % (42.0-52.0); Hemoglobin 12.5 g/dL (14.1-18.0); Lymphocytes # 1.7 K/mm3 (0.7-4.5); Lymphocytes % 20.5 % (10-50); Mean Corpuscular HGB Conc 31.3 g/dL (31.8-35.4); Mean Corpuscular Hemoglobin 26.6 pg (27.0-31.2); Mean Corpuscular Volume 84.9 fl (80-94); Mean Platelet Volume 7.8 fl (7.4-10.4); Monocytes # 0.6 K/mm3 (0.1-1.0); Neutrophils # 5.5 K/mm3 (1.8-7.8); Neutrophils % 64.6 % (37.0-80.0); Platelet Count 424 K/mm3 (142-424); White Blood Count 8.5 K/mm3 (4.8-10.8)
[2022-04-01 09:48] LABS: Alanine Aminotransferase 24 U/L (12-78); Albumin Level 4.1 g/dl (3.5-5.0); Albumin/Globulin Ratio 1.4 (1.1-1.8); Alkaline Phosphatase 77 U/L (38-126); Anion Gap 17.7 mEq/L (5-15); Aspartate Amino Transferase 29 U/L (17-59); Bilirubin,Total 0.2 mg/dl (0.2-1.3); Blood Urea Nitrogen 28 mg/dl (9-20); Calcium 9.2 mg/dl (8.4-10.2); Carbon Dioxide 30 mmol/L (22.0-30.0); Chloride 99 mmol/L (98-107); Estimated Glomerular Filt Rate 64 ml/min (>60); GFR (African American) 77 ML/MIN (>60); Globulin 2.9 g/dL (1.3-3.2); Glucose 139 mg/dl (74-100); Potassium 5.7 mmoL/L (3.5-5.1); Sodium 141 mmol/L (136-145)
[2022-04-01 09:53] LABS: C-Reactive Protein 4.2 mg/L (0-4)
[2022-04-01 09:57] LABS: Erythrocyte Sedimentation Rate 15 mm/hr (0-20)
== END ==
PROVIDERS: PCP Physician Assistant; Visit Provider Nurse Practitioner Family
DX: E11.621 Type 2 diabetes mellitus with foot ulcer (principal); L97.519 Non-pressure chronic ulcer of other part of right foot with unspecified severity; Z79.84 Long term (current) use of oral hypoglycemic drugs
CPT/HCPCS: 36415; 73630; 80053; 85025; 85651; 86140

== ENCOUNTER → 2022-07-18 18:04 | Outpatient (CLI) | payer MEDICARE, SELFPAY | PROVIDERS: PCP Podiatrist; Visit Provider Podiatrist | DX: E11.621 Type 2 diabetes mellitus with foot ulcer (principal); L97.519 Non-pressure chronic ulcer of other part of right foot with unspecified severity; Z79.84 Long term (current) use of oral hypoglycemic drugs | CPT/HCPCS: 87070; 87077; 87186; 87205 ==

== ENCOUNTER → 2022-12-19 16:14 | Outpatient (CLI) | payer MEDICARE, SELFPAY ==
[2022-12-19 18:04] LABS: Basophils % 0.4 % (0.1-2.0); Eosinophils # 0.6 K/mm3 (0.0-0.4); Hematocrit 40.4 % (42.0-52.0); Hemoglobin 12.7 g/dL (14.1-18.0); Lymphocytes # 1.7 K/mm3 (0.7-4.5); Lymphocytes % 22.1 % (10-50); Mean Corpuscular HGB Conc 31.4 g/dL (31.8-35.4); Mean Corpuscular Hemoglobin 25.8 pg (27.0-31.2); Mean Corpuscular Volume 82.3 fl (80-94); Mean Platelet Volume 7.8 fl (7.4-10.4); Monocytes # 0.5 K/mm3 (0.1-1.0); Monocytes % 6.6 % (1.7-9.3); Neutrophils # 4.9 K/mm3 (1.8-7.8); Neutrophils % 62.9 % (37.0-80.0); Platelet Count 383 K/mm3 (142-424); Red Blood Count 4.91 M/mm3 (4.60-6.20); Red Cell Distribution Width 13.7 % (11.5-17.5); White Blood Count 7.7 K/mm3 (4.8-10.8)
[2022-12-19 18:28] LABS: Hemoglobin A1C 7.5 % (4.0-6.0)
[2022-12-19 18:30] LABS: Alanine Aminotransferase 34 U/L (12-78); Albumin Level 4.4 g/dl (3.5-5.0); Albumin/Globulin Ratio 1.6 (1.1-1.8); Alkaline Phosphatase 68 U/L (38-126); Anion Gap 16.2 mEq/L (5-15); Aspartate Amino Transferase 34 U/L (17-59); Bilirubin,Total 0.4 mg/dl (0.2-1.3); Blood Urea Nitrogen 24 mg/dl (9-20); Calcium 9.1 mg/dl (8.4-10.2); Carbon Dioxide 26 mmol/L (22.0-30.0); Chloride 102 mmol/L (98-107); Chol/HDL Ratio 3.6 (1-3.5); Cholesterol 114 mg/dl (140-200); Estimated Glomerular Filt Rate 63 ml/min (>60); GFR (African American) 77 ML/MIN (>60); Globulin 2.8 g/dL (1.3-3.2); Glucose 141 mg/dl (74-100); HDL Cholesterol 32 mg/dl (40-60); Potassium 5.2 mmoL/L (3.5-5.1); Sodium 139 mmol/L (136-145); Total Protein,Serum 7.2 g/dl (6.3-8.2); Triglycerides 242 mg/dl (30-150); VLDL Cholesterol 48 mg/dL (0-40)
[2022-12-19 18:47] LABS: 25-OH Vitamin D, Total 51.9 ng/mL (30-100)
[2022-12-19 19:01] LABS: Thyroid Stimulating Hormone 1.03 uIU/mL (0.465-4.68)
[2022-12-19 19:20] LABS: Vitamin B12 279 pg/mL (239-931)
== END ==
PROVIDERS: PCP Physician Assistant; Visit Provider Physician Assistant
DX: R53.83 Other fatigue (principal); E55.9 Vitamin D deficiency, unspecified; E11.621 Type 2 diabetes mellitus with foot ulcer; L97.511 Non-pressure chronic ulcer of other part of right foot limited to breakdown of skin; Z79.899 Other long term (current) drug therapy; Z79.84 Long term (current) use of oral hypoglycemic drugs
CPT/HCPCS: 80053; 80061; 82306; 82607; 83036; 84443; 85025

== ENCOUNTER → 2023-02-26 12:00 | Outpatient (CLI) | payer MEDICARE, SELFPAY | PROVIDERS: PCP Physician Assistant; Visit Provider Nurse Practitioner Family | DX: Z51.89 Encounter for other specified aftercare (principal); M79.671 Pain in right foot; B96.4 Proteus (mirabilis) (morganii) as the cause of diseases classified elsewhere; B96.89 Other specified bacterial agents as the cause of diseases classified elsewhere | CPT/HCPCS: 87070; 87077; 87186; 87205 ==

== ENCOUNTER → 2023-04-01 09:41 | Outpatient (CLI) | payer MEDICARE, SELFPAY ==
--- NOTE | 2023-04-01 09:45 | XR_ITS ---
FINAL REPORT CLINICAL HISTORY: wound care FINDINGS: 3 views of the right foot were obtained. There has been transmetatarsal amputation. There are mild degenerative changes of the midfoot. The soft tissues are unremarkable. IMPRESSION: Postoperative and degenerative changes. Reviewed, Interpreted and Dictated by Kali Lemos III, MD Transcribed by Rigoberto Mcleod Authenticated and [facility]
--- NOTE | 2023-04-01 09:45 | XR_ITS ---
FINAL REPORT CLINICAL HISTORY: ankle pain, swelling FINDINGS: LEFT ANKLE: Three views of the left ankle were obtained. There is an acute or subacute oblique fracture of the distal fibula metaphysis. Mild degenerative changes are present. There is soft tissue swelling. There are postoperative changes of the foot. IMPRESSION: Acute or subacute fracture of the distal fibula metaphysis. Reviewed, Interpreted and Dictated by Kali Lemos III, MD Transcribed by Rigoberto Mcleod Authenticated and [facility]
== END ==
LOC: RAD 09:42
PROVIDERS: PCP Physician Assistant; Visit Provider Podiatrist
DX: Z51.89 Encounter for other specified aftercare (principal); M25.572 Pain in left ankle and joints of left foot
CPT/HCPCS: 73610; 73630

== ENCOUNTER → 2023-05-01 07:59 | Outpatient (CLI) | payer MEDICARE, SELFPAY ==
--- NOTE | 2023-05-01 08:06 | XR_ITS ---
FINAL REPORT CLINICAL HISTORY: left ankle fx fractured at the end of March COMPARISON: 04/01/2023 FINDINGS: LEFT ANKLE The lateral malleolar fracture noted on the prior examination of March 2023 remains present, and there is mild callus formation now present. The visualized joint spaces are normally aligned. The soft tissues are unremarkable. IMPRESSION: No acute bony abnormality. Mild bridging callus formation present in the lateral malleolar fracture. Reviewed, Interpreted and Dictated by Rashaun Alex MD Transcribed by Doris Mcintosh Authenticated and [facility]
== END ==
LOC: RAD 08:02
PROVIDERS: PCP Physician Assistant; Visit Provider Podiatrist
DX: S82.832A Other fracture of upper and lower end of left fibula, initial encounter for closed fracture (principal); S93.402A Sprain of unspecified ligament of left ankle, initial encounter
CPT/HCPCS: 73610

== ENCOUNTER → 2023-05-27 07:48 | Outpatient (CLI) | payer MEDICARE, SELFPAY ==
--- NOTE | 2023-05-27 07:56 | XR_ITS ---
FINAL REPORT CLINICAL HISTORY: ankle fracture followup COMPARISON: 05/01/2023 FINDINGS: LEFT ANKLE Images of the left ankle reveal an oblique mildly displaced fracture of the distal fibula, with bridging callus present. The patient has undergone a previous transmetatarsal amputation. The visualized joint spaces are normally aligned. The soft tissues are unremarkable. IMPRESSION: Oblique mildly displaced fracture of the distal fibula with bridging callus present, alignment unchanged from the prior exam of May 01. Reviewed, Interpreted and Dictated by Rashaun Alex MD Transcribed by Doris Mcintosh Authenticated and [facility]
== END ==
LOC: RAD 07:49
PROVIDERS: PCP Physician Assistant; Visit Provider Podiatrist
DX: S82.832A Other fracture of upper and lower end of left fibula, initial encounter for closed fracture (principal); M25.572 Pain in left ankle and joints of left foot
CPT/HCPCS: 73610

== ENCOUNTER 2023-06-24 07:38 | Outpatient (CLI) | payer MEDICARE, SELFPAY ==
--- NOTE | 2023-06-24 07:42 | XR_ITS ---
FINAL REPORT CLINICAL HISTORY: Ankle pain pt states ankle fractured 6-8 weeks ago, checking to see healing progress COMPARISON: 05/27/2023 FINDINGS: LEFT ANKLE: Three views of the left ankle were obtained. There is a subacute oblique fracture of the distal fibular metaphysis also seen on the prior films of May 27. There is increased callus formation since the prior exam consistent with healing. The joint spaces and mortise are intact. There is no soft tissue abnormality. IMPRESSION: Subacute oblique fracture of the distal fibular metaphysis, with increasing callus formation consistent with healing. Reviewed, Interpreted and Dictated by Kali Lemos III, MD Transcribed by Doris Mcintosh Authenticated and [facility]
== END 2023-06-24 23:59 ==
PROVIDERS: PCP Physician Assistant; Visit Provider Podiatrist
DX: S93.402A Sprain of unspecified ligament of left ankle, initial encounter (principal); M25.572 Pain in left ankle and joints of left foot
CPT/HCPCS: 73610

== ENCOUNTER 2023-07-22 10:53 | Outpatient (CLI) | payer MEDICARE, SELFPAY ==
--- NOTE | 2023-07-22 11:03 | XR_ITS ---
FINAL REPORT CLINICAL HISTORY: Ankle Pain.. COMPARISON: 06/24/2023 FINDINGS: Left ankle Three views were obtained. There is a subacute fracture of the distal fibular metaphysis, stable from prior. There are mild degenerative changes. IMPRESSION: Fracture as above. Reviewed, Interpreted and Dictated by Kali Lemos III, MD Transcribed by Cleopatra Karimi Authenticated and . [facility]
--- NOTE | 2023-07-22 11:03 | XR_ITS ---
FINAL REPORT CLINICAL HISTORY: Diabeteic Foot Ulcer FINDINGS: Right foot Three views were obtained. There is no acute fracture or dislocation. The joint spaces appear normal. There are postoperative changes from transmetatarsal amputation. Mild degenerative changes are present. No bony erosion is seen. There is a soft tissue defect in the distal foot. IMPRESSION: Soft tissue defect in the distal foot. Reviewed, Interpreted and Dictated by Kali Lemos III, MD Transcribed by Cleopatra Karimi Authenticated and [facility]
== END 2023-07-22 23:59 ==
PROVIDERS: PCP Physician Assistant; Visit Provider Podiatrist
DX: E11.621 Type 2 diabetes mellitus with foot ulcer (principal); L97.519 Non-pressure chronic ulcer of other part of right foot with unspecified severity; Z51.89 Encounter for other specified aftercare; B95.7 Other staphylococcus as the cause of diseases classified elsewhere; B96.89 Other specified bacterial agents as the cause of diseases classified elsewhere; M25.572 Pain in left ankle and joints of left foot; Z79.84 Long term (current) use of oral hypoglycemic drugs
CPT/HCPCS: 73610; 73630; 87070; 87205

== ENCOUNTER 2023-09-23 07:51 | Outpatient (CLI) | payer MEDICARE, SELFPAY ==
--- NOTE | 2023-09-23 07:56 | XR_ITS ---
FINAL REPORT CLINICAL HISTORY: ankle pain COMPARISON: 07/22/2023 FINDINGS: LEFT ANKLE: Three views of the left ankle were obtained. There is an oblique fracture of the distal fibular metaphysis, with stable alignment and callus formation since the prior film of July. Mild degenerative change of the ankle is present. There is no soft tissue abnormality. IMPRESSION: No acute bony abnormality. There has been interval further healing of the oblique fracture of the distal fibular metaphysis, and alignment remains stable. Reviewed, Interpreted and Dictated by Kali Lemos III, MD Transcribed by Doris Mcintosh Authenticated and [facility]
== END 2023-09-23 23:59 ==
LOC: RAD 07:52
PROVIDERS: PCP Physician Assistant; Visit Provider Podiatrist
DX: E11.621 Type 2 diabetes mellitus with foot ulcer (principal); L97.519 Non-pressure chronic ulcer of other part of right foot with unspecified severity; B96.83 Acinetobacter baumannii as the cause of diseases classified elsewhere; M25.572 Pain in left ankle and joints of left foot; S93.492A Sprain of other ligament of left ankle, initial encounter; Z79.84 Long term (current) use of oral hypoglycemic drugs
CPT/HCPCS: 73610; 87070; 87205

== ENCOUNTER 2023-12-02 10:19 | Outpatient (CLI) | payer MEDICARE, SELFPAY ==
--- NOTE | 2023-12-02 10:32 | XR_ITS ---
FINAL REPORT CLINICAL HISTORY: Foot Pain..ulcer on bottom of foot COMPARISON: 07/22/2023 FINDINGS: Three views of the right foot show postoperative changes from transmetatarsal amputation. There is no evidence of new bony destruction. No evidence of acute displaced fracture or dislocation of the visualized bony architecture. The joint spaces appear normal. There is an open wound at the plantar surface of the first metatarsal stump. IMPRESSION: No radiographic changes of osteomyelitis. Reviewed, Interpreted and Dictated by Mechelle Stahl MD Transcribed by Yuliet Tavares Authenticated and [facility]
--- NOTE | 2023-12-02 10:39 | XR_ITS ---
FINAL REPORT CLINICAL HISTORY: ankle pain fx from may COMPARISON: 09/23/2023 FINDINGS: Three views of the left ankle show healed distal fibular fracture with mild residual deformity. There are mild degenerative changes. IMPRESSION: Healed distal fibular fracture with mild residual deformity. Reviewed, Interpreted and Dictated by Mechelle Stahl MD Transcribed by Yuliet Tavares Authenticated and [facility]
== END 2023-12-02 23:59 | disposition home or self-care (01) ==
LOC: RAD 10:20
PROVIDERS: PCP Physician Assistant; Visit Provider Podiatrist
DX: M79.671 Pain in right foot (principal); M79.672 Pain in left foot; S82.832A Other fracture of upper and lower end of left fibula, initial encounter for closed fracture; S93.492A Sprain of other ligament of left ankle, initial encounter
CPT/HCPCS: 73610; 73630

== ENCOUNTER 2023-12-15 16:42 | Outpatient (CLI) | payer MEDICARE, SELFPAY ==
[2023-12-15 16:30] LABS: Chloride 100 mmol/L (98-107)
[2023-12-15 16:31] LABS: Potassium 5.8 mmoL/L (3.5-5.1); Sodium 138 mmol/L (136-145)
[2023-12-15 16:33] LABS: Alanine Aminotransferase 26 U/L (12-78); Anion Gap 17.8 mEq/L (5-15); Aspartate Amino Transferase 29 U/L (17-59); Blood Urea Nitrogen 28 mg/dl (9-20); Carbon Dioxide 26 mmol/L (22.0-30.0); Estimated Glomerular Filt Rate 49 ml/min (>60); GFR (African American) 59 ML/MIN (>60)
[2023-12-15 16:34] LABS: Albumin Level 4.7 g/dl (3.5-5.0); Albumin/Globulin Ratio 1.4 (1.1-1.8); Alkaline Phosphatase 72 U/L (38-126); Bilirubin,Total 0.4 mg/dl (0.2-1.3); Calcium 9.9 mg/dl (8.4-10.2); Chol/HDL Ratio 4.2 (1-3.5); Cholesterol 135 mg/dl (140-200); Globulin 3.3 g/dL (1.3-3.2); Glucose 86 mg/dl (74-100); HDL Cholesterol 32 mg/dl (40-60); Triglycerides 159 mg/dl (30-150); VLDL Cholesterol 32 mg/dL (0-40)
[2023-12-15 16:45] LABS: Direct LDL Cholesterol 76.69 mg/dL (100-129)
[2023-12-15 16:52] LABS: 25-OH Vitamin D, Total 54.5 ng/mL (30-100)
[2023-12-15 18:16] LABS: Prostate Specific Ag Screen 0.4 ng/ml (0.0-4.0); Thyroid Stimulating Hormone 2.25 uIU/mL (0.465-4.68)
== END 2023-12-15 23:59 | disposition home or self-care (01) ==
LOC: LAB.DROPOF 16:43
PROVIDERS: PCP Physician Assistant; Visit Provider Physician Assistant
DX: E11.40 Type 2 diabetes mellitus with diabetic neuropathy, unspecified (principal); E78.2 Mixed hyperlipidemia; I10 Essential (primary) hypertension; Z12.5 Encounter for screening for malignant neoplasm of prostate; E78.5 Hyperlipidemia, unspecified; E55.9 Vitamin D deficiency, unspecified; R53.83 Other fatigue
CPT/HCPCS: 80053; 80061; 82306; 84443; G0103

== ENCOUNTER 2023-12-19 09:30 | Outpatient (CLI) | payer MEDICARE, SELFPAY ==
[2023-12-19 10:27] LABS: Chloride 105 mmol/L (98-107); Potassium 4.9 mmoL/L (3.5-5.1); Sodium 138 mmol/L (136-145)
[2023-12-19 10:30] LABS: Anion Gap 11.9 mEq/L (5-15); Blood Urea Nitrogen 26 mg/dl (9-20); Carbon Dioxide 26 mmol/L (22.0-30.0); Estimated Glomerular Filt Rate 58 ml/min (>60); GFR (African American) 70 ML/MIN (>60)
[2023-12-19 10:31] LABS: Calcium 9.5 mg/dl (8.4-10.2); Glucose 154 mg/dl (74-100)
== END 2023-12-19 23:59 | disposition home or self-care (01) ==
LOC: LAB 09:31
PROVIDERS: PCP Physician Assistant; Visit Provider Physician Assistant
DX: E11.621 Type 2 diabetes mellitus with foot ulcer (principal); L97.509 Non-pressure chronic ulcer of other part of unspecified foot with unspecified severity; Z79.84 Long term (current) use of oral hypoglycemic drugs
CPT/HCPCS: 36415; 80048

== ENCOUNTER 2023-12-24 08:12 | Day surgery (SDC) | payer MEDICARE, SELFPAY ==
[2023-12-17 12:39] VITALS: BMI 31.6
[2023-12-24] VITALS (10 sets, daily range): BP systolic 137–165; BP diastolic 70–97; PULSE 64–87; RESP 12–18; TEMP 36.2–43; O2SAT 94–98
[2023-12-24 09:46] LABS: POC Glucose,Bedside 121 (70-110)
[2023-12-24] MEDS: CEFEPIME HCL 1 GM in 0.9 % SODIUM CHLORIDE 50 ML IV (09:54)
[2023-12-24] MEDS: GENTAMICIN 80 MG/2 ML VIAL (10:10)
[2023-12-24] MEDS: VANCOMYCIN 1000MG VIAL 1000 MG (10:10)
--- NOTE | 2023-12-24 11:00 | XR_ITS ---
FINAL REPORT CLINICAL HISTORY: post op 1st met resection, DFU COMPARISON: 12/02/2023 FINDINGS: RIGHT FOOT 3 views of the right foot were obtained. There has been further resection of the mid 1st metatarsal. There is no acute fracture or dislocation. Visualized joint spaces are normally aligned. Soft tissues are unremarkable. IMPRESSION: Interval postoperative changes. Reviewed, Interpreted and Dictated by Kali Lemos III, MD Transcribed by Yuliet Tavares Authenticated and [facility]
--- NOTE | 2023-12-24 11:22 | XR_ITS ---
FINAL REPORT CLINICAL HISTORY: post-procedure FINDINGS: Right ankle Three views were obtained. There is no acute fracture or dislocation. There are mild degenerative changes. No soft tissue abnormality is identified. IMPRESSION: No acute process. Reviewed, Interpreted and Dictated by Kali Lemos III, MD Transcribed by Cleopatra Karimi Authenticated and [facility]
--- NOTE | 2023-12-24 11:24 | P.PNANES_ITS ---
[facility] Disclaimer: The information contained in this section may have been updated after the patient was seen, as this information can be updated by other users. Medical History (Updated 12/24/23 @ 09:23 by Yuliet Vila RN) History of ankle fracture Patella fracture Toe amputee HLD (hyperlipidemia) HTN (hypertension) CAD (coronary artery disease) Dyspnea Fatigue Diabetes mellitus Type 2 diabetes mellitus Surgical History (Updated 12/24/23 @ 09:23 by Yuliet Vila RN) History of ankle surgery History of knee surgery History of amputation Family History Other No significant family history Social History Smoking Status: Never smoker second hand exposure: No alcohol intake: never substance use type: denies use current occupational status: unemployed Travel in the last 8 weeks: None household members: spouse housing: house current occupation: CUSTOMER SERV[employer] current occupational exposures/hazards: No caffeine: Yes [facility] Anesthesia Checklist Patient Identification Patient Identification: Arm Band and Family Structural Data Admitted From: Home Planned Operative Procedure/s: Wound debridement right foot. Consent for Planned Operative Procedure(s) Verified: Yes Verified Documents: Surgical Consent and History and Physical NPO Status Verified Time NPO: 00:00 Additional verifications Patient : No Anesthesia Reactions: No Hx Blood Transfusions: No Blood Transfusion Reaction: No Cephalosporin Allergy: No Previous Colonoscopy: Yes Airway Assessment Mallampati Score:: Class I C-Spine Mobility Assessed: Yes TMJ Mobility Assessed: Yes Dentition: Good Dentition Neurological Assessment Level of Consciousness: Awake, Alert and Appropriate Anesthesia Plan Anesthesia Risk discussed: Yes ASA Class: III Anesthesia Type: General Preoperative Comments Pre-Operative Comments: Htn. NIDDM.
--- NOTE | 2023-12-24 11:26 | EXP.ANES.I ---
[facility] Anesthesia Record Part I Anesthesia Record I Intake, IV Amount: 550 Hydration: Adequate Estimated blood loss (mL): 20 Urine output (mL): 0 Blood Products used (#): none Blood Pressure: 160/78 SaO2: 97 Pulse Rate: 80 Airway Patency: Patent Respiratory Rate: 12 Temperature: 98.2 F Patient is:: Drowsy and Stable Stable to PACU at:: 11:16
--- NOTE | 2023-12-24 11:33 | EXP.OP.NOTE ---
Date of procedure: 12/24/23 Pre-op Diagnosis:: Right DFU Hx TMA Scar tissue Post-op Diagnosis:: Same Procedure performed:: Right foot partial 1st metatarsal amputation (71399) wound debridement () scar excision open bone biopsy () delayed primary closure adjacent soft tissue rearrangement/derotational skin flap (13044: 10-30sq cm) Surgeon:: Marybeth Ruelas DPM OPTICAL GLASS WET INSPECTOR:: Edmundo Matute Anesthesia: regional Estimated blood loss (mL): 20 Clinical Note:: Patient is a 53-year-old diabetic male with a ulcer to the right subfirst metatarsal. Patient has had weekly wound debridements, offloading, local wound care, oral antibiotics without resolution of the wound. Recent right foot imaging shows no signs of osteomyelitis. We discussed conservative versus surgical treatment options. Conservative treatment options include local wound care, oral and IV antibiotics, change in shoe wear, taping/padding, and off-loading. We discussed surgical intervention for wound debridement, excision of scar tissue, met resection, skin flap/delayed primary closure (vs graft application). Patient understands that there is a chance that the foot may change shape after surgery. Patient also understands that they could have wound healing complications including delayed healing and infection. We discussed that if the wound does not heal, it is possible that they may need a more proximal amputation and could result in further loss of digits, loss of partial foot or loss of leg. We discussed the risks and benefits in great detail. Other surgical risks include: prolonged pain and swelling, further infection requiring oral or IV antibiotics, delay in healing of soft tissue or bone, nerve or blood vessel damage, CRPS/RSD, DVT/PE, anesthesia complications, and even . All questions answered. Patient verbalized understanding. Consent obtained. Pre-op labs reviewed. Medical clearance granted by Princess Grimes: 12/15/23. Operative findings:: Right sub 1st met DFU, 2.7 x 2.5 x 0.6 cm. Sharp excisional debridement with 15'/curette thru skin into subq into deep fascia. Fibrotic, scar appearing tissue. Decision made to excise the entire ulcer full-thickness down to the level of bone. Significant scar tissue from multiple wounds that had healed and reopened. The first metatarsal bone was hard and texture normal color. No obvious signs of osteomyelitis noted. Operative note:: On this date and time patient was deemed an appropriate surgical candidate. With informed consent signed, the patient was taken to the operating room. The patient was positioned supine. LMA anesthesia was induced. Right mid calf tourniquet applied @225mmHg. Right lower extremity prepped and draped in normal sterile fashion. IV 1g Vanco, 1g Cefepime. Right sub 1st metatarsal ulcer excision, scar excision: 15 blade was used to make a hurricane type incision around the ulceration full-thickness through skin subcu extending into the deep fascia. The tendon was visualized. There was significant scarring, fibrotic tissue noted. No purulence or acute signs of infection noted. Ulcer was removed full-thickness and sent as a tissue culture. Wound was flushed with gentamicin irrigation. There was not enough skin to close over the ulcer site so the incision was extended superiorly and inferiorly. Skin was extended to create a rotational flap for later closure. Right 1st metatarsal partial resection (met head resection), bone biopsy: Tourniquet inflated. Prior TMA incision healed. A longitudinal incision was mapped out over the dorsal aspect of the first metatarsal. Dissection was carried down with care to maintain surgical hemostasis and safely treat neurovascular structures. Dissection was then carried down to the level of the bone. Soft tissue and scar exposed from the met. There was thick fibrotic tissue noted on the medial and lateral aspect of the met. The first metatarsal was exposed. Next power resection was used to transect the first metatarsal neck/shaft. This was sent for bone culture. The remaining was hard in texture with no other signs of osteomyelitis. A small piece of the met proximally was transected and sent to pathology as a bone biopsy. Rasp was used to smooth down the plantar edges of the first and second metatarsals and there was no prominence noted. All wounds were flushed with gentamicin irrigation. Due to the significant plantar adhesions and scar tissue, the FHL tendon was transected, the sesamoids had previously been removed with the TMA surgery. Rotational flap skin closure (adjacent soft tissue rearrangement/derotational skin flap): Attention was directed back to the plantar foot. The incision ends had been extended and more then rotated plantar medial to dorsal lateral to close over the soft tissue defect where the ulcer had been excised. Subcutaneous tissue had been repaired with the Vicryl. Vancomycin powder inserted. The skin flap was repaired with nylon. Skin was closed with no defect remaining. Henok guard applied over highest area of tension to prevent wound dehiscence. The skin was cleansed. Tourniquet deflated and immediate hyperemic response was noted to the digits. Vancomycin powder applied over the incisions. Xeroform, Betadine soaked 4 x 4's followed by dry sterile dressing to the foot. The patient tolerated the procedure and anesthesia well, without complications. He was transferred to recovery with vital signs stable and neural vascular status intact. Materials: Vancomycin powder 1g, Henok-guard (Suture-guard) Discharge/Plan: Ok to discharge home when ready and vss. Patient is to maintain dressing clean dry and intact. Elevate on two pillows. Non weight bearing to the right lower extremity with DME assistance. Take oral abx as directed: Linezolid, Levo x10d (12/24-01/01/24). Follow up with me next week. Tourniquet time (min): 34 Condition: stable Disposition: same day Specimens:: Right foot wound tissue culture Right first metatarsal bone culture Right first metatarsal bone margin pathology Complications:: None
[2023-12-24 11:38] LABS: POC Glucose,Bedside 118 (70-110)
--- NOTE | 2023-12-25 07:22 | EXP.ANES.II ---
[facility] Anesthesia Record Part II Anesthesia Record Part II Discharge Time: 11:46 Destination: Surgical Day Care (OP Surgery) PACU nurse assessment reviewed?: Yes Patient Condition:: Good Anesthesia Complications:: None Swallowing reflex intact?: Yes Airway Patency: Patent Cyanosis?: No Blood Pressure: 159/85 SaO2: 98 Respiratory Rate: 16 Pulse Rate: 82 Temperature: 98.2 F Mental Status: Alert & Oriented Pain level:: 0 Nausea and/or vomitting:: None Intake, IV Amount: 0 Hydration: Adequate
[2023-12-25 07:23] VITALS: BP 159/85; PULSE 82; RESP 16; TEMP 36.8; O2SAT 98
== END 2023-12-24 12:35 | disposition home or self-care (01) ==
PROVIDERS: PCP Physician Assistant; Visit Provider Podiatrist
PROC: (CPT 14040; principal; 2023-12-24 09:45)
DX: E11.621 Type 2 diabetes mellitus with foot ulcer (principal); L97.518 Non-pressure chronic ulcer of other part of right foot with other specified severity; Z79.84 Long term (current) use of oral hypoglycemic drugs; I25.10 Atherosclerotic heart disease of native coronary artery without angina pectoris; I10 Essential (primary) hypertension; E78.5 Hyperlipidemia, unspecified; Z79.899 Other long term (current) drug therapy
CPT/HCPCS: 14040; 28122; 73610; 73630; 82962; 87070; 87077; 87186; 87205; 88304; 88305; 88311; 96374; J0692; J1580; J2250; J2405; J3010; J3370

== ENCOUNTER 2024-01-06 09:10 | Outpatient (CLI) | payer MEDICARE, SELFPAY ==
--- NOTE | 2024-01-06 09:21 | US_ITS ---
FINAL REPORT CLINICAL HISTORY: S/P RIGHT TOE AMPUTATION R FOOT,ALL TOES AMPUTED LT FOOT,DM,HTN,HLD COMPARISON: None FINDINGS: LOWER EXTREMITY SEGMENTAL PRESSURE MEASUREMENTS Pressure indices are as follows: RIGHT LOWER EXTREMITY: Thigh: 1.29 Calf: 1.24 Ankle, posterior tibial artery: 1.01 Ankle, dorsalis pedis: 1.04 TERRA: 1.04 Comments: Normal LEFT LOWER EXTREMITY: Thigh: 1.20 Calf: 1.23 Ankle, posterior tibial artery: 1.17 Ankle, dorsalis pedis: 1.11 TERRA: 1.17 Comments: Normal IMPRESSION: No evidence of arterial disease of the bilateral lower extremities. Reviewed, Interpreted and Dictated by Mechelle Stahl MD Transcribed by Yuliet Tavares Authenticated and [facility]
[2024-01-06 09:27] LABS: Basophils % 0.7 % (0.1-2.0); Eosinophils # 0.1 K/mm3 (0.0-0.4); Eosinophils % 2.7 % (0.1-12.0); Hematocrit 41.3 % (42.0-52.0); Hemoglobin 13.5 g/dL (14.1-18.0); Lymphocytes % 21.5 % (10-50); Mean Corpuscular HGB Conc 32.6 g/dL (31.8-35.4); Mean Corpuscular Hemoglobin 26.6 pg (27.0-31.2); Mean Corpuscular Volume 81.6 fl (80-94); Monocytes # 0.4 K/mm3 (0.1-1.0); Neutrophils # 3.1 K/mm3 (1.8-7.8); Platelet Count 290 K/mm3 (142-424); Red Blood Count 5.06 M/mm3 (4.60-6.20); Red Cell Distribution Width 14.5 % (11.5-17.5); White Blood Count 4.7 K/mm3 (4.8-10.8)
[2024-01-06 09:58] LABS: Alanine Aminotransferase 28 U/L (12-78); Albumin Level 4.1 g/dl (3.5-5.0); Albumin/Globulin Ratio 1.3 (1.1-1.8); Alkaline Phosphatase 73 U/L (38-126); Anion Gap 13.2 mEq/L (5-15); Aspartate Amino Transferase 31 U/L (17-59); Bilirubin,Total 0.3 mg/dl (0.2-1.3); Blood Urea Nitrogen 22 mg/dl (9-20); Calcium 9.6 mg/dl (8.4-10.2); Carbon Dioxide 30 mmol/L (22.0-30.0); Chloride 98 mmol/L (98-107); Estimated Glomerular Filt Rate 53 ml/min (>60); GFR (African American) 64 ML/MIN (>60); Globulin 3.1 g/dL (1.3-3.2); Glucose 158 mg/dl (74-100); Potassium 4.2 mmoL/L (3.5-5.1); Sodium 137 mmol/L (136-145); Total Protein,Serum 7.2 g/dl (6.3-8.2)
[2024-01-06 10:05] LABS: C-Reactive Protein 33.3 mg/L (0-4)
[2024-01-06 10:58] LABS: Erythrocyte Sedimentation Rate 18 mm/hr (0-20)
== END 2024-01-06 23:59 | disposition home or self-care (01) ==
LOC: LAB 09:11
PROVIDERS: PCP Physician Assistant; Visit Provider Podiatrist
DX: L76.31 Postprocedural hematoma of skin and subcutaneous tissue following a dermatologic procedure (principal); E11.621 Type 2 diabetes mellitus with foot ulcer; L97.519 Non-pressure chronic ulcer of other part of right foot with unspecified severity; E11.40 Type 2 diabetes mellitus with diabetic neuropathy, unspecified; R09.89 Other specified symptoms and signs involving the circulatory and respiratory systems; Z79.84 Long term (current) use of oral hypoglycemic drugs
CPT/HCPCS: 36415; 80053; 85025; 85651; 86140; 93923

== ENCOUNTER 2024-01-13 16:54 | Outpatient (CLI) | payer MEDICARE, SELFPAY | END 2024-01-13 23:59 | disposition home or self-care (01) | LOC: LAB.DROPOF 16:55 | PROVIDERS: PCP Podiatrist; Visit Provider Podiatrist | DX: Z98.890 Other specified postprocedural states (principal); Z89.431 Acquired absence of right foot | CPT/HCPCS: 87070; 87205 ==

== ENCOUNTER 2024-02-24 16:50 | Outpatient (CLI) | payer MEDICARE, SELFPAY | END 2024-02-24 23:59 | disposition home or self-care (01) | LOC: LAB.DROPOF 16:51 | PROVIDERS: PCP Podiatrist; Visit Provider Podiatrist | DX: Z98.890 Other specified postprocedural states (principal); Z51.89 Encounter for other specified aftercare; L76.31 Postprocedural hematoma of skin and subcutaneous tissue following a dermatologic procedure; E11.621 Type 2 diabetes mellitus with foot ulcer; L97.519 Non-pressure chronic ulcer of other part of right foot with unspecified severity; Z89.432 Acquired absence of left foot; Z89.431 Acquired absence of right foot | CPT/HCPCS: 87070; 87077; 87186; 87205 ==

== ENCOUNTER 2024-03-03 08:01 | Day surgery (SDC) | payer MEDICARE, SELFPAY ==
[2024-03-03] VITALS (10 sets, daily range): BP systolic 116–182; BP diastolic 71–96; PULSE 65–73; RESP 18–20; O2SAT 94–99; BMI 32.2
--- NOTE | 2024-03-03 07:11 | IR_ITS ---
APPROVED REPORT Patient Location: Outpatient Bung Dropper: JOSELITO Pierson RT (R) PROCEDURES Right radial arterial access Catheter placement in the left superficial femoral artery Selective antegrade angiogram of the left superficial femoral artery with unilateral runoff to the left foot Catheter placement in the right superficial femoral artery Selective antegrade angiogram of the right superficial femoral artery with unilateral runoff to the right foot INDICATION Ana claudication class V and , Abnormal TERRA Informed consent was obtained prior to the procedure. COMPLICATIONS NONE Estimated Blood Loss: LESS THAN 10 ML TECHNIQUE 1% lidocaine used to anesthetize the right anterior aspect of the right wrist. The right radial artery was accessed via the central technique and an arterial cocktail using 5000U heparin, 2.5 mg verapamil, 1mg lidocaine and 800mcg nitroglycerin into the right radial sheath intra-arterially. A PV multi curve catheter was then placed into the left superficial femoral artery where antegrade angiography was performed with unilateral runoff to the left foot. This procedure was repeated in the right superficial femoral artery with unilateral runoff to the right foot. No abdominal aortic angiogram was performed due to renal insufficiency with a creatinine of 1.6 ANGIOGRAPHIC RESULTS The left superficial femoral artery and left popliteal artery are widely patent Below the knee there is three-vessel runoff to the mid calf with two-vessel runoff from the anterior tibialis artery and posterior tibialis artery into the left foot Physical examination reveals +2 left femoral artery pulse. The right superficial femoral artery and right popliteal artery are widely patent Below the knee there is three-vessel runoff to the mid calf and two-vessel runoff from the anterior tibialis artery and posterior tibialis artery into the right foot Physical examination reveals +2 right femoral pulses IMPRESSION Widely patent macrovascular chart as described above Small vessel and microscopic distal vasculopathy PLAN 1. Continue medical management. Consider aspirin and Xarelto 2.5 twice daily Electronically signed by : Austin Baron MD 03/03/2024 15:41:23
[2024-03-03 08:41] LABS: Basophils % 0.4 % (0.1-2.0); Eosinophils # 0.3 K/mm3 (0.0-0.4); Eosinophils % 4.7 % (0.1-12.0); Hematocrit 42.2 % (42.0-52.0); Hemoglobin 12.7 g/dL (14.1-18.0); Lymphocytes # 1.5 K/mm3 (0.7-4.5); Lymphocytes % 26.2 % (10-50); Mean Corpuscular Volume 86.4 fl (80-94); Mean Platelet Volume 6.4 fl (7.4-10.4); Monocytes # 0.4 K/mm3 (0.1-1.0); Monocytes % 6.1 % (1.7-9.3); Neutrophils # 3.6 K/mm3 (1.8-7.8); Neutrophils % 62.6 % (37.0-80.0); Platelet Count 385 K/mm3 (142-424); Red Blood Count 4.88 M/mm3 (4.60-6.20); White Blood Count 5.7 K/mm3 (4.8-10.8)
[2024-03-03 09:05] LABS: Anion Gap 11.5 mEq/L (5-15); Blood Urea Nitrogen 24 mg/dl (9-20); Calcium 9.5 mg/dl (8.4-10.2); Carbon Dioxide 29 mmol/L (22.0-30.0); Chloride 103 mmol/L (98-107); Creatinine Clearance Estimated 87 mL/min (50-200); Estimated Glomerular Filt Rate 45 ml/min (>60); GFR (African American) 55 ML/MIN (>60); Glucose 121 mg/dl (74-100); Potassium 4.5 mmoL/L (3.5-5.1); Sodium 139 mmol/L (136-145)
[2024-03-03] MEDS: diphenhydrAMINE 50MG/ML VIAL 50 MG IV (12:06)
[2024-03-03] MEDS: NITROGLYCERIN 800MCG/8ML SYR (CATH LAB) 800 MCG IA (12:07)
[2024-03-03] MEDS: LIDOCAINE 1% 10ML MDV 20 ML IJ (12:07)
[2024-03-03] MEDS: HEPARIN 1,000 UNITS/ML 10ML VIAL (CATH LAB) 10000 UNIT IV (12:07)
[2024-03-03] MEDS: VERAPAMIL 2.5MG/ML 2ML VIAL 2.5 MG IV (12:07)
[2024-03-03] MEDS: HEPARIN 1,000 UNITS/500ML NS (CATH LAB) 3000 UNIT IV (12:08)
[2024-03-03] MEDS: 0.9 % SODIUM CHLORIDE 500 ML 25 ML IV (12:09)
[2024-03-03] MEDS: FENTANYL 100MCG/2ML VIAL 50 MCG IV (12:20)
[2024-03-03] MEDS: MIDAZOLAM HCL 1MG/1ML 5ML VIAL 1 MG IV (12:20)
[2024-03-03] MEDS: IOPAMIDOL-250 (51%) 100ML BOT 50 ML IV (14:42)
--- NOTE | 2024-03-03 14:58 | SUR.PHASEII ---
sitting up in bed eating lunch.
== END 2024-03-03 15:37 | disposition home or self-care (01) ==
LOC: CATHLAB 08:02
PROVIDERS: PCP Physician Assistant; Visit Provider Internal Medicine
DX: E11.621 Type 2 diabetes mellitus with foot ulcer (principal); L97.519 Non-pressure chronic ulcer of other part of right foot with unspecified severity; R23.4 Changes in skin texture; I10 Essential (primary) hypertension; Z79.899 Other long term (current) drug therapy; Z79.84 Long term (current) use of oral hypoglycemic drugs; E78.5 Hyperlipidemia, unspecified; I25.10 Atherosclerotic heart disease of native coronary artery without angina pectoris
CPT/HCPCS: 36247; 75716; 80048; 85025; 99152; C1725; C1769; J1200; J1644; J2250; J3010; Q9966

== ENCOUNTER 2024-06-03 11:09 | Day surgery (SDC) | payer MEDICARE, SELFPAY ==
--- NOTE | 2024-06-01 16:45 | SUR.PREOP ---
Left VM w/ call back # on 06/01
[2024-06-03 11:16] VITALS: BMI 32.2
[2024-06-03 11:31] VITALS: BP 162/78; PULSE 62; RESP 20; TEMP 36.1; O2SAT 98; BMI 32.2
[2024-06-03 11:46] LABS: POC Glucose,Bedside 211 (70-110)
[2024-06-03 11:48] LABS: Chloride 106 mmol/L (98-107); Potassium 4.7 mmoL/L (3.5-5.1); Sodium 134 mmol/L (136-145)
[2024-06-03 11:49] LABS: Red Blood Count 4.73 M/mm3 (4.60-6.20); White Blood Count 5.2 K/mm3 (4.8-10.8)
[2024-06-03 11:50] LABS: Basophils % 0.4 % (0.1-2.0); Eosinophils % 7.6 % (0.1-12.0); Hematocrit 38.4 % (42.0-52.0); Hemoglobin 11.8 g/dL (14.1-18.0); Lymphocytes # 1.3 K/mm3 (0.7-4.5); Lymphocytes % 25.4 % (10-50); Mean Corpuscular HGB Conc 30.7 g/dL (31.8-35.4); Mean Corpuscular Hemoglobin 24.9 pg (27.0-31.2); Mean Corpuscular Volume 81.2 fl (80-94); Mean Platelet Volume 9.4 fl (7.4-10.4); Monocytes # 0.4 K/mm3 (0.1-1.0); Monocytes % 7.5 % (1.7-9.3); Neutrophils # 3.1 K/mm3 (1.8-7.8); Neutrophils % 58.7 % (37.0-80.0); Platelet Count 391 K/mm3 (142-424)
[2024-06-03 11:51] LABS: Alanine Aminotransferase 29 U/L (12-78); Albumin/Globulin Ratio 1.3 (1.1-1.8); Alkaline Phosphatase 74 U/L (38-126); Anion Gap 6.7 mEq/L (5-15); Aspartate Amino Transferase 29 U/L (17-59); Bilirubin,Total 0.5 mg/dl (0.2-1.3); Blood Urea Nitrogen 32 mg/dl (9-20); Carbon Dioxide 26 mmol/L (22.0-30.0); Creatinine Clearance Estimated 93 mL/min (50-200); Eosinophils # 0.4 K/mm3 (0.0-0.4); Estimated Glomerular Filt Rate 49 ml/min (>60); GFR (African American) 59 ML/MIN (>60)
[2024-06-03 11:52] LABS: Calcium 8.8 mg/dl (8.4-10.2); Glucose 208 mg/dl (74-100)
[2024-06-03] MEDS: VANCOMYCIN 1000MG VIAL 1000 MG (12:10)
[2024-06-03] MEDS: GENTAMICIN 80 MG/2 ML VIAL (12:10)
[2024-06-03 12:28] VITALS: BP 157/71; PULSE 60; RESP 16; TEMP 36.1; O2SAT 99
[2024-06-03 12:39] VITALS: BP 145/73; PULSE 61; RESP 18; O2SAT 98
[2024-06-03] MEDS: cefTRIAXone 1GM VIAL 1 GM IM (12:41)
[2024-06-03 12:44] LABS: Erythrocyte Sedimentation Rate 17 mm/hr (0-20)
--- NOTE | 2024-06-03 13:38 | P.OP_ITS ---
Date of procedure: 06/03/24 Pre-op Diagnosis:: Right foot DFU x2 Hx right TMA Post-op Diagnosis:: Same Procedure performed:: Wound debridement x2 Application of wound graft (Organogenesis Apligraf) Surgical prep or site created by excision of open wound, burn or scar Surgeon:: Marybeth Ruelas DPM Anesthesia: none Estimated blood loss (mL): 5 Clinical Note:: Patient is a 53-year-old diabetic male with right diabetic foot ulcer. Patient has failed conservative treatment, including multiple debridements, various wound dressings, off-loading, immobilization. The recent x-rays are negative for underlying bone infection. Any prior skin/soft tissue infection resolved with oral/IV antibiotics. Patient has been getting in office PuraPly graft applications with wound debridement which has improved the wound base and appearance, however the wound size is not getting significantly smaller. We discussed staged wound graft surgery. All risks and benefits were discussed including but not limited to: damage to blood vessels and nerves, bleeding, infection, wound complications, need for further surgery, implant/graft failure, need for removal of implant/graft, allergic reaction, prolonged or permanent swelling of the extremity, prolonged or permanent pain or deformity, CRPS/RSD, DVT/PE, and anesthetic complications including . Patient understands if wound/graft gets infected, it could lead to prolonged oral or IV antibiotics or increased risk of osteomyelitis, which could lead to possible loss of digits, partial foot or even BKA. No guarantees were given. All questions fully answered. The patient verbalized understanding and agreed to proceed with surgery. Written consent was obtained. Operative findings:: Right sub 1st met DFU. Some rohini wound callus with mild maceration, no drainage. No erythema or warmth. The rohini wound skin was fragile from previous surgery, wound debridements and in office staged Puaply graft applications. Sharp excisional debridement full thickness thru skin, subq. Bleeding noted during debridement. Post: right sub 1st medial DFU: 2.1 x 1.9 x 0.3 cm, 100% granular. Right sub 3rd met DFU: 100% granular, thru skin: 0.1 x 0.1 x 0.0cm. Right heel pressure ulcer with rohini wound callus thru skin: healed. Operative note:: On this date and time patient was deemed an appropriate surgical candidate. With informed consent signed, the patient was taken to the local procedure operating theater room. The patient was positioned supine. No anesthesia was induced. No tourniquet used. Right lower extremity was prepped and draped in normal sterile fashion. 1g IM Rocephin given. Right DFU x2 debridement: Pre-debridement there was mild maceration and no acute signs of infection noted. Sharp excisional full-thickness debridement with 15 blade, curette, forceps down to/including subcutaneous tissue to both ulcers. Biofilm and fibrotic slough removed. No deep fascia or bone exposed. The skin edges were debrided with 15' blade, some bleeding noted. The wounds were flushed with gentamicin irrigation. Skin cleansed with saline. Vanco powder to wound. Mastisol applied around the wound edges. Application of Apligraf (Organogenesis wound graft): Graft was prepared in standard fashion. The entire graft (44 sq cm) was utilized over the wounds. The graft was placed over the open wounds/DFU and circumferentially around the surrounding skin (as the graft was larger than the wound) and secured with Steri-Strips. Vanco powder applied over graft. Adaptic was applied over the graft followed by dry sterile dressing to right foot. The patient tolerated the procedure well, without complications. Materials: Organogenesis Aligraf wound graft x1 (44 sq cm), Vanco powder 1g Discharge/Plan: Ok to discharge home when ready and vss. Patient is to maintain dressing clean dry and intact. Elevate on two pillows. Minimize weight bearing. NWB to RLE in fracture boot with walker/wheelchair/RKS. Obtain 3v right foot x- rays. Discussed planned staged surgery in future as needed. Condition: stable Disposition: same day Complications:: None
== END 2024-06-03 12:50 | disposition home or self-care (01) ==
PROVIDERS: PCP Family Medicine; Visit Provider Podiatrist
PROC: (CPT 15275; principal; 2024-06-03 12:00)
DX: E11.621 Type 2 diabetes mellitus with foot ulcer (principal); L97.411 Non-pressure chronic ulcer of right heel and midfoot limited to breakdown of skin; E11.9 Type 2 diabetes mellitus without complications; Z79.84 Long term (current) use of oral hypoglycemic drugs; Z79.899 Other long term (current) drug therapy; I10 Essential (primary) hypertension; E78.5 Hyperlipidemia, unspecified; I25.10 Atherosclerotic heart disease of native coronary artery without angina pectoris
CPT/HCPCS: 15275; 36415; 80053; 82962; 85025; 85651; 86140; J0696; J1580; J3370; Q4101

== ENCOUNTER 2024-06-08 07:59 | Outpatient (CLI) | payer MEDICARE, SELFPAY ==
--- NOTE | 2024-06-08 08:06 | CA_ITS ---
APPROVED REPORT EXAM: Comprehensive 2D, Doppler, and color-flow Echocardiogram Guide Dog Mobility Instructor: BARBARA Boyd, RVS Ht: 6 ft 3 in Wt: 258lbs BSA: 2.44 BP: 147/84 mmHg Indications: pre-op assessment for colonoscopy, CAD, Abn EKG 2D Dimensions Left Atrium 4.47 cm LA Volume 77.10 mL LA Volume Index [id number] mL/m2 (M/F) 16-34 M-Mode Dimensions RVDd 2.05 cm (0.9-2.6) LA Diam 4.44 cm (1.9-4.0) LVDd 5.66 cm (3.5-5.7) LVDs 3.21 cm (3.5-5.7) IVSd 1.44 cm (0.6-1.1) PWd 1.40 cm (0.6-1.1) EF (Teich) 73.80% EPSs 0.36 cm FS 43.30% EDV (Teich) 157.50 mL TAPSE 2.59 (<1.7) ESV (Teich) 41.30 mL LV Diastology E Decel Time 177 (160-240 msec) E/A Ratio 1.87 MED A' 8.90 cm/s LAT A' 9.70 cm/s Aortic Valve MARYAM Index 1.21 cm2/m2 AoV Peak Alonzo. 115.0 (50-130 cm/s) AO Peak GR. 5.30 mmHg AO Mean GR. 2.70 (<5 mmHg) AO VTI 26.5 (18-25 cm) MARYAM (VTI) 3.02 (2.5-4.5 cm2) Mitral Valve MV A Velocity 51.0 (40-130 cm/s) E/A Ratio 1.87 Pulmonary Valve PV Peak Velocity 63.0 (50-150 cm/s) Tricuspid Valve TR P. Velocity 248.00 cm/s RAP Estimate 10.00 mmHg RVSP 34.60 mmHg Left Ventricle The left ventricle is normal size. The left ventricular systolic function is normal. The left ventricular ejection fraction is within the normal range. There is normal left ventricular wall thickness. There is normal LV segmental wall motion. The left ventricular diastolic function is normal. LVEF is 55% Right Ventricle The right ventricle is normal size. The right ventricular systolic function is normal. Atria The left atrium is mildly dilated. The right atrium size is normal. There is no Doppler evidence of interatrial shunt. Aortic Valve The aortic valve opens well. There is no aortic valvular stenosis. No aortic regurgitation is present. Mitral Valve The mitral valve is normal in structure. No evidence of mitral valve stenosis. Trace mitral regurgitation. Tricuspid Valve Tricuspid valve is grossly normal in structure and function. Mild tricuspid regurgitation. RVSP is 20-25 mmHg. Pulmonic Valve The pulmonary valve is normal in structure. Trace pulmonic regurgitation. Great Vessels The aortic root is normal in size. The ascending aorta is not well visualized. IVC is normal in size and collapses >50% with inspiration. Pericardium There is no pericardial effusion. Other Information Study Quality: Adequate Conclusion Normal biventricular systolic function. Mild LA dilation. Mild TR. RVSP 20-25 mmHg. Electronically signed by : Darlene López MD 06/17/2024 11:32:43
== END 2024-06-08 23:59 | disposition home or self-care (01) ==
LOC: RT 08:00
PROVIDERS: PCP Family Medicine; Visit Provider Nurse Practitioner Family
DX: Z01.810 Encounter for preprocedural cardiovascular examination (principal); I51.7 Cardiomegaly; I36.1 Nonrheumatic tricuspid (valve) insufficiency
CPT/HCPCS: 93306

== ENCOUNTER 2024-07-05 11:56 | Day surgery (SDC) | payer MEDICARE, SELFPAY ==
[2024-07-02 12:30] VITALS: BMI 31.8
[2024-07-05 12:12] VITALS: BP 143/75; PULSE 68; RESP 19; TEMP 36.3; O2SAT 99
[2024-07-05] MEDS: LACTATED RINGERS 1000ML 1,000 ML 50 ML IV (12:26)
[2024-07-05 12:27] LABS: POC Glucose,Bedside 115 (70-110)
[2024-07-05 12:40] VITALS: O2SAT 100
--- NOTE | 2024-07-05 12:40 | P.HP_ITS ---
History of Present Illness *Admission Date: 07/05/24 *Reason for visit:: Screening colonoscopy *History of present illness: Mr. Brooks is a 53-year-old gentleman who is here for screening colonoscopy. He did have a positive Cologuard in March 2021 and had a colonoscopy (Kali Christie). The preparation at that time was fair to poor and the report states that the colonoscope was advanced to the cecum with poor visibility. The examination is deemed medically necessary for screening colonoscopy. The patient has been seen, interviewed and examined prior to the procedure by both myself and the anesthesia provider. [facility] Disclaimer: The information contained in this section may have been updated after the patient was seen, as this information can be updated by other users. Medical History Peripheral arterial disease Non-healing surgical wound History of ankle fracture Patella fracture Toe amputee HLD (hyperlipidemia) HTN (hypertension) CAD (coronary artery disease) Dyspnea Fatigue Diabetes mellitus Type 2 diabetes mellitus Surgical History History of ankle surgery History of knee surgery History of amputation Family History Other Diabetes Social History Smoking Status: Never smoker second hand exposure: No alcohol intake: never substance use type: denies use current occupational status: disabled Travel in the last 8 weeks: None household members: spouse housing: house current occupation: CUSTOMER SERVICE current occupational exposures/hazards: No caffeine: Yes Have you lived/traveled outside [place] in past 30 days?: No Contact w/someone who lives/traveled outside US past 30 days?: No Exposure to someone with infectious disease in past 14 days?: No Do you have a fever (greater than 100.4 F or 38 C)?: No Have you tested positive for COVID-19: No Exposed to someone with COVID-19 in past 14 days?: No Do you have a sore throat?: No Do you have a cough?: No Do you have any weakness?: No Do you have any diarrhea?: No Are you experiencing any unusual bleeding?: No Do you have any muscle aches/pain?: No Do you have any abdominal pain?: No Are you experiencing loss of taste or smell?: No Other Medical History Have you received the Flu Vaccine for this season: No Have you received the Pneumonia Vaccine: No Review of Systems Review of Systems Review of systems (narrative): Negative *Cardiovascular Comments: Negative *Gastrointestinal Comments: Negative *Genitourinary Comments: Negative *Musculoskeletal Comments: Negative *Neurologic Comments: Negative Meds Home Medications and Allergies Home Medications ?Medication ?Instructions ?Recorded ?Confirmed ?Type aspirin 81 mg tablet,delayed 81 mg PO DAILY 02/04/24 07/05/24 History release (Adult Low Dose Aspirin) ergocalciferol (vitamin D2) 1,250 See Rx Instructions .Route 03/31/24 07/05/24 Rx mcg (50,000 unit) capsule .COMPLEX #14 caps blood-glucose meter,continuous #1 ea 04/21/24 07/02/24 Rx (Dexcom G7 Gift Consultant) blood-glucose sensor (Dexcom G7 #1 ea 04/21/24 07/02/24 Rx Sensor device) glipizide 10 mg tablet, extended 10 mg PO BID #180 tabs 04/21/24 07/05/24 Rx release 24 hr metformin 850 mg tablet 850 mg PO DAILY #90 tabs 04/21/24 07/05/24 Rx lisinopril 2.5 mg tablet See Rx Instructions .Route 04/28/24 07/05/24 Rx .COMPLEX #90 tabs pioglitazone 30 mg tablet See Rx Instructions .Route 04/28/24 07/05/24 Rx .COMPLEX #90 tabs atorvastatin 10 mg tablet 10 mg PO QHS Cholesterol #90 tabs 05/26/24 07/05/24 Rx rivaroxaban 2.5 mg tablet (Xarelto) See Rx Instructions .Route 06/22/24 07/05/24 Rx .COMPLEX #180 tabs New Prescriptions to Start Prescriptions: Allergies Allergy/AdvReac Type Severity Reaction Status Date / Time No Known Allergies Allergy Verified 07/02/24 12:29 Exam Data for Last 24 hours Vital signs and Labs for Last 24 Hours: Temp Pulse Resp BP Pulse Ox O2 Del Method 97.3 F L 68 19 143/75 H 99 Room Air 07/05/24 12:12 07/05/24 12:12 07/05/24 12:12 07/05/24 12:12 07/05/24 12:12 07/05/24 12:12 Laboratory Results - last 24 hr 07/05/24 12:17: POC Glucose 115 H I & O for Last 24 hours: Intake & Output 07/02/24 07/03/24 07/04/24 07/05/24 23:59 23:59 23:59 23:59 Weight 255 lb *Routine HEENT Exam Head: Present normocephalic Eye: Present EOMI and PERRL ENT: Present mucous membranes moist *Routine Neck Exam Neck: Present supple *Routine Respiratory Exam Respiratory: Present CTA bilaterally *Routine Cardiovascular Exam Cardiovascular: Present RRR *Routine Abdominal Exam Abdominal: Present soft and normoactive bowel sounds; Absent tenderness *Routine Rectal Exam Rectal:: deferred *Routine Genitalia Exam Genitalia:: deferred *Routine Extremities Exam Extremities: Absent cyanosis, clubbing or edema *Routine Skin Exam Skin: Present warm; Absent rash *Routine Neurological Exam Neurological: Present alert and oriented X3 Assessment and Plan *Assessment and plan (1) Colon cancer screening: Status: Acute Category: Medical Code(s): Z12.11 - Encounter for screening for malignant neoplasm of colon Plan A/P: 1. Screening colonoscopy is the preprocedural diagnosis. The patient will be anesthetized/sedated using MAC sedation. The patient has been seen and examined. Cardiac and lung assessment prior to the examination is stable. Proceed with planned screening colonoscopy
--- NOTE | 2024-07-05 12:42 | HMH.PROCNOTE ---
[facility] Procedure Note Date: 07/05/24 Time: 13:01 Procedure Note:: Colonoscopy Procedure Report: Colonoscopy with cold snare polypectomy Endoscopist: Sb Ojeda II, MD Referring physician: Braden Rivas MD Date of Procedure: July 05, 2024 Equipment: Olympus 190 variable stiffness pediatric colonoscope Sedation: MAC sedation Indication: Mr. Brooks is a 53-year-old gentleman who is here for screening colonoscopy. He did have a positive Cologuard in 2020 and had a colonoscopy in March 2021 that was poorly prepped with poor visualization. This was not repeated subsequently. The patient does have some anemia (Hemoglobin 11.8 and hematocrit 38.4 with MCV 81.2). He is on Xarelto and aspirin. There are no recent iron studies. The patient reports no abdominal pain, weight loss, change in his bowel habits or rectal bleeding. He reports no family history of colon cancer. Procedure: Prior to the procedure, a history and physical exam was performed, and patient's medications and allergies were reviewed. The risks, benefits and alternatives of the sedation and procedure were discussed with the patient. All questions were answered and informed consent was obtained. The patient was brought to the procedure room. Patient identification and proposed procedure were verified by the physician and the nurse. The patient was placed in a left lateral decubitus position and the scope was passed under direct vision. Throughout the procedure, the patient's blood pressure, pulse, and oxygen saturations were monitored continuously. The colonoscopy was accomplished without difficulty. The patient tolerated the procedure well. Findings: On digital rectal examination there was normal rectal tone. There were no external hemorrhoids. The colonoscope was introduced through the anal canal to the rectum and advanced to the cecum. The ileocecal valve and appendiceal orifice were identified. The scope was advanced a short distance into the ileum which appeared grossly normal. The scope was then withdrawn into the colon. There was a small 3 mm angiodysplasia/AVM of the cecum that was nonbleeding. There were 2 polyps (ascending x 1 (4 mm) and transverse x 1 (4 mm)). Both of these were removed via cold snare polypectomy. The remaining cecum, ascending, transverse, descending, sigmoid and rectum were grossly normal. There were no other mucosal abnormalities identified. Upon retroflexion within the rectum there were grade 2 internal hemorrhoids.The preparation was good throughout with [place] Preparation Score of 8 out of 9. The cecal time was 12 minutes. Impression: 1. Diminutive colonic polyps x 2 Plan: I will follow-up the polyp histology and recommend repeat surveillance colonoscopy again in 7 years if the polyps are adenomatous. I would encourage bulking fiber supplementation on a maintenance basis. The patient does have anemia. I will check iron studies today. Long-term exposure to certain medications especially blood thinners (oral anticoagulants?i.e. Xarelto, etc.) is an associated independent risk factor for the development of iron deficiency anemia. Other medications associated with iron deficiency anemia include acid reflux medications (proton pump inhibitors?omeprazole, pantoprazole, etc.) which are also associated with iron deficiency and play a role with reduced iron absorption.
[2024-07-05 13:05] VITALS: BP 123/75; PULSE 54; RESP 16; TEMP 36.2; O2SAT 96
--- NOTE | 2024-07-05 13:14 | P.PNANES_ITS ---
[facility] Disclaimer: The information contained in this section may have been updated after the patient was seen, as this information can be updated by other users. Medical History Peripheral arterial disease Non-healing surgical wound History of ankle fracture Patella fracture Toe amputee HLD (hyperlipidemia) HTN (hypertension) CAD (coronary artery disease) Dyspnea Fatigue Diabetes mellitus Type 2 diabetes mellitus Surgical History History of ankle surgery History of knee surgery History of amputation Family History Other Diabetes Social History Smoking Status: Never smoker second hand exposure: No alcohol intake: never substance use type: denies use current occupational status: disabled Travel in the last 8 weeks: None household members: spouse housing: house current occupation: CUSTOMER SERVICE current occupational exposures/hazards: No caffeine: Yes Have you lived/traveled outside US in past 30 days?: No Contact w/someone who lives/traveled outside US past 30 days?: No Exposure to someone with infectious disease in past 14 days?: No Do you have a fever (greater than 100.4 F or 38 C)?: No Have you tested positive for COVID-19: No Exposed to someone with COVID-19 in past 14 days?: No Do you have a sore throat?: No Do you have a cough?: No Do you have any weakness?: No Do you have any diarrhea?: No Are you experiencing any unusual bleeding?: No Do you have any muscle aches/pain?: No Do you have any abdominal pain?: No Are you experiencing loss of taste or smell?: No [facility] Anesthesia Checklist Patient Identification Patient Identification: Arm Band and Family Structural Data Admitted From: Home Planned Operative Procedure/s: Colonoscopy Consent for Planned Operative Procedure(s) Verified: Yes Verified Documents: Surgical Consent and History and Physical NPO Status Verified Time NPO: 00:00 Additional verifications Patient : No Anesthesia Reactions: No Hx Blood Transfusions: No Blood Transfusion Reaction: No Cephalosporin Allergy: No Previous Colonoscopy: Yes Airway Assessment Mallampati Score:: Class II C-Spine Mobility Assessed: Yes TMJ Mobility Assessed: Yes Dentition: Good Dentition Neurological Assessment Level of Consciousness: Awake, Alert, Appropriate and Follows Commands Hx Seizures: No Numbness or tingling in extremities: No Anesthesia Plan Anesthesia Risk discussed: Yes ASA Class: II Anesthesia Type: MAC Preoperative Comments Pre-Operative Comments: NIDDM. HTN.
[2024-07-05 13:15] VITALS: BP 118/80; PULSE 56; RESP 16; O2SAT 100
[2024-07-05 13:35] VITALS: BP 126/75; PULSE 58; RESP 16; O2SAT 100
[2024-07-05 14:45] LABS: Basophils % 0.6 % (0.1-2.0); Eosinophils # 0.3 K/mm3 (0.0-0.4); Eosinophils % 6.3 % (0.1-12.0); Hematocrit 41.7 % (42.0-52.0); Hemoglobin 12.9 g/dL (14.1-18.0); Lymphocytes # 1.4 K/mm3 (0.7-4.5); Lymphocytes % 26.5 % (10-50); Mean Corpuscular HGB Conc 30.9 g/dL (31.8-35.4); Mean Corpuscular Volume 80.8 fl (80-94); Mean Platelet Volume 9.6 fl (7.4-10.4); Monocytes # 0.4 K/mm3 (0.1-1.0); Monocytes % 7.9 % (1.7-9.3); Neutrophils # 3.1 K/mm3 (1.8-7.8); Neutrophils % 58.5 % (37.0-80.0); Platelet Count 365 K/mm3 (142-424); Red Blood Count 5.16 M/mm3 (4.60-6.20); Red Cell Distribution Width 14.2 % (11.5-17.5); White Blood Count 5.2 K/mm3 (4.8-10.8)
[2024-07-05 15:54] LABS: Iron 67 ug/dL (49-181)
[2024-07-05 16:05] LABS: Total Iron Binding Capacity 468 ug/dL (261-462)
[2024-07-05 16:34] LABS: Ferritin 23.5 ng/ml (17.9-464)
== END 2024-07-05 13:36 | disposition home or self-care (01) ==
PROVIDERS: PCP Family Medicine; Visit Provider Internal Medicine Gastroenterology
PROC: (CPT 45385; principal; 2024-07-05 13:30)
DX: K55.20 Angiodysplasia of colon without hemorrhage (principal); K64.1 Second degree hemorrhoids; K63.5 Polyp of colon; E11.9 Type 2 diabetes mellitus without complications; Z79.84 Long term (current) use of oral hypoglycemic drugs; Z12.11 Encounter for screening for malignant neoplasm of colon; D64.9 Anemia, unspecified
CPT/HCPCS: 45385; 82728; 82962; 83540; 83550; 85025; J7120

== ENCOUNTER 2024-07-22 09:09 | Outpatient (CLI) | payer MEDICARE, SELFPAY ==
[2024-07-22 16:27] LABS: Basophils % 0.7 % (0.1-2.0); Eosinophils # 0.4 K/mm3 (0.0-0.4); Eosinophils % 8.1 % (0.1-12.0); Hematocrit 43.3 % (42.0-52.0); Lymphocytes # 1.5 K/mm3 (0.7-4.5); Lymphocytes % 28.3 % (10-50); Mean Corpuscular Hemoglobin 24.8 pg (27.0-31.2); Mean Corpuscular Volume 82.5 fl (80-94); Mean Platelet Volume 9.7 fl (7.4-10.4); Monocytes # 0.5 K/mm3 (0.1-1.0); Monocytes % 8.5 % (1.7-9.3); Neutrophils # 2.9 K/mm3 (1.8-7.8); Neutrophils % 54.2 % (37.0-80.0); Platelet Count 382 K/mm3 (142-424); Red Blood Count 5.25 M/mm3 (4.60-6.20); Red Cell Distribution Width 14.3 % (11.5-17.5); White Blood Count 5.4 K/mm3 (4.8-10.8)
[2024-07-22 17:03] LABS: Anion Gap 17.5 mEq/L (5-15); Blood Urea Nitrogen 32 mg/dl (9-20); Carbon Dioxide 27 mmol/L (22.0-30.0); Chloride 99 mmol/L (98-107); Estimated Glomerular Filt Rate 58 ml/min (>60); GFR (African American) 70 ML/MIN (>60); Glucose 219 mg/dl (74-100); Potassium 5.5 mmoL/L (3.5-5.1); Sodium 138 mmol/L (136-145)
[2024-07-22 18:07] LABS: HIV Combo NEGATIVE (Negative)
[2024-07-22 18:15] LABS: Hepatitis C Ab Qual. W/ RFX NEGATIVE (Negative)
== END 2024-07-22 23:59 | disposition home or self-care (01) ==
LOC: LAB.DROPOF 07-23 11:17
PROVIDERS: PCP Family Medicine; Visit Provider Family Medicine
DX: E11.621 Type 2 diabetes mellitus with foot ulcer (principal); L97.509 Non-pressure chronic ulcer of other part of unspecified foot with unspecified severity; Z11.4 Encounter for screening for human immunodeficiency virus [HIV]; Z11.59 Encounter for screening for other viral diseases
CPT/HCPCS: 80048; 85025; 86803; 87389

== ENCOUNTER 2024-10-04 08:30 | Outpatient (CLI) | payer MEDICARE, SELFPAY | END 2024-10-04 23:59 | disposition home or self-care (01) | LOC: LAB.DROPOF 10-05 14:19 | PROVIDERS: PCP Nurse Practitioner; Visit Provider Nurse Practitioner | DX: E11.621 Type 2 diabetes mellitus with foot ulcer (principal); L97.411 Non-pressure chronic ulcer of right heel and midfoot limited to breakdown of skin; B96.20 Unspecified Escherichia coli [E. coli] as the cause of diseases classified elsewhere; Z79.84 Long term (current) use of oral hypoglycemic drugs | CPT/HCPCS: 87070; 87077; 87186; 87205 ==

== ENCOUNTER 2024-10-12 08:55 | Outpatient (CLI) | payer MEDICARE, SELFPAY ==
--- NOTE | 2024-10-12 09:04 | XR_ITS ---
FINAL REPORT CLINICAL HISTORY: Right foot DFU COMPARISON: 12/24/2023 FINDINGS: RIGHT FOOT 3 views of the right foot were obtained. There has been transmetatarsal amputation. There is no acute fracture or dislocation. Visualized joint spaces are normally aligned. There is soft tissue ulceration distal to the amputated first metatarsal. No definite bony erosion seen. IMPRESSION: No acute bony abnormality. No definite bony erosion. MRI would be necessary to exclude underlying osteomyelitis. Reviewed, Interpreted and Dictated by Rashaun Alex MD Transcribed by Yuliet Tavares Authenticated and [facility]
[2024-10-12 09:23] LABS: Basophils % 0.6 % (0.1-2.0); Eosinophils # 0.5 Kmm3 (0.0-0.4); Eosinophils % 7.2 % (0.1-12.0); Hemoglobin 13.4 g/dL (14.1-18.0); Lymphocytes # 1.4 K/mm3 (0.7-4.5); Lymphocytes % 21.8 % (10-50); Mean Corpuscular HGB Conc 31.2 g/dL (31.8-35.4); Mean Corpuscular Hemoglobin 26.1 pg (27.0-31.2); Mean Corpuscular Volume 83.8 fl (80-94); Mean Platelet Volume 9.3 fl (7.4-10.4); Monocytes # 0.6 K/mm3 (0.1-1.0); Monocytes % 8.8 % (1.7-9.3); Neutrophils # 3.9 K/mm3 (1.8-7.8); Neutrophils % 61.1 % (37.0-80.0); Nucleated Red Blood Cells # 0 10^3/uL; Nucleated Red Blood Cells % 0 %; Platelet Count 365 K/mm3 (142-424); Red Blood Count 5.13 M/mm3 (4.60-6.20); Red Cell Distribution Width 13.5 % (11.5-17.5); Red Cell Distribution Width-SD 41.7 fL; White Blood Count 6.4 K/mm3 (4.8-10.8)
[2024-10-12 09:54] LABS: Alanine Aminotransferase 24 U/L (12-78); Albumin Level 4.2 g/dl (3.5-5.0); Albumin/Globulin Ratio 1.4 (1.1-1.8); Alkaline Phosphatase 67 U/L (38-126); Anion Gap 11.1 mEq/L (5-15); Aspartate Amino Transferase 28 U/L (17-59); Bilirubin,Total 0.5 mg/dl (0.2-1.3); Blood Urea Nitrogen 26 mg/dl (9-20); Calcium 9.6 mg/dl (8.4-10.2); Carbon Dioxide 28 mmol/L (22.0-30.0); Chloride 105 mmol/L (98-107); Estimated Glomerular Filt Rate 57 ml/min (>60); GFR (African American) 69 ML/MIN (>60); Glucose 200 mg/dl (74-100); Potassium 5.1 mmoL/L (3.5-5.1); Sodium 139 mmol/L (136-145); Total Protein,Serum 7.2 g/dl (6.3-8.2)
[2024-10-12 09:57] LABS: Erythrocyte Sedimentation Rate 15 mm/hr (0-20)
[2024-10-12 09:59] LABS: C-Reactive Protein 2.6 mg/L (0-4)
[2024-10-12 10:25] LABS: Hemoglobin A1C 8.7 % (4.0-6.0)
== END 2024-10-12 23:59 | disposition home or self-care (01) ==
PROVIDERS: PCP Family Medicine; Visit Provider Podiatrist
DX: L97.511 Non-pressure chronic ulcer of other part of right foot limited to breakdown of skin (principal); E11.9 Type 2 diabetes mellitus without complications
CPT/HCPCS: 36415; 73630; 80053; 83036; 85025; 85651; 86140

== ENCOUNTER 2024-11-16 10:30 | Outpatient (CLI) | payer MEDICARE, SELFPAY | END 2024-11-16 23:59 | disposition home or self-care (01) | LOC: LAB.DROPOF 11-17 10:32 | PROVIDERS: PCP Podiatrist; Visit Provider Podiatrist | DX: E11.621 Type 2 diabetes mellitus with foot ulcer (principal); L97.411 Non-pressure chronic ulcer of right heel and midfoot limited to breakdown of skin; L97.519 Non-pressure chronic ulcer of other part of right foot with unspecified severity; S91.309A Unspecified open wound, unspecified foot, initial encounter | CPT/HCPCS: 87070; 87077; 87186; 87205 ==

== ENCOUNTER 2025-03-01 08:30 | Outpatient (CLI) | payer MEDICARE, SELFPAY ==
--- OUTSIDE RECORDS SUMMARY | 2025-03-02 12:46 | XMS_ITS | Clinical Summary ---
Author Organization Healthcare Address [address] [place] [address] Care Team Providers Care Project Management Professional Name Role Phone Princess Grimes Primary Care Provider [phone] Allergies No known active allergies Medications ergocalciferol (Vitamin D2) 10 MCG (400 UNIT) tablet 1250mcg Take 1 tablet weekly 11/09/2020 Active Aspirin Buf,CaCarb-MgCar b-MgO, 81 MG tablet TAKE 1 TABLET DAILY. 11/09/2020 Active atorvastatin (Lipitor) 10 MG tablet TAKE 1 TABLET AT BEDTIME. 01/01/2018 Active glipiZIDE (Glucotrol) 10 MG tablet TAKE 1 TABLET DAILY. 01/14/2018 Active lisinopril 2.5 MG tablet TAKE 1 TABLET DAILY. 11/09/2020 Active metFORMIN (Glucophage) 850 MG tablet TAKE 1 TABLET 3 TIMES DAILY WITH MEALS. 01/14/2018 Active pioglitazone (Actos) 30 MG tablet TAKE 1 TABLET ONCE DAILY. 11/16/2020 Active Active Problems Problem Noted Date Diagnosed Date Anemia 11/16/2020 CKD (chronic kidney disease) stage 2, GFR 60-89 ml/min 11/16/2020 Diabetes mellitus, type 2 12/11/2016 Hypertension 12/11/2016 Microalbuminuria 10/31/2016 Immunizations Immunization Administration Dates Next Due Influenza, injectable, quadr ivalent, preservative free 03/30/2020,06/24/2019,05/18/2016 Family History Medical History Relation Name Comments Diabetes Father Diabetes Mother Relation Name Status Comments Father Mother Social History Tobacco Use Types Packs/Day Years Used Date Smoking Tobacco: Never Smokeless Tobacco: Never Tobacco Cessation:Counseling Given: Not Answered Alcohol Use Standard Drinks/Week Comments Yes 0 (1 standard drink = 0.6 oz pur e alcohol) Sex and Gender Information Value Date Recorded Sex Assigned at Not on file Legal Sex Male 6:23 PM EDT Gender Identity Not on file Sexual Orientation Not on file Last Filed Vital Signs Vital Sign Reading Time Taken Comments Blood Pressure 122/70 02/25/2022 3:23 PM EDT Pulse 81 02/25/2022 3:23 PM EDT Temperature - - Respiratory Rate - - Oxygen Saturation - - Inhaled Oxygen Concentration - - Weight 116 kg (255 lb) 02/25/2022 3:23 PM EDT Height 190.5 cm (6' 3 ) 01/19/2018 3:29 PM EDT Body Mass Index 31.87 01/19/2018 3:29 PM EDT Plan of Treatment Health Maintenance Due Date Last Done Comments [facility]-Depression Screening 1969 [facility]-Diabetes: Hemoglobin A1C 1969 [facility]-Infant/Child/Adol SDOH Screenings 1969 Diabetes: Dental Exam 1979 [facility]- SDOH Screenings 1987 [facility]-Adult SDOH Screenings 1987 [facility]-DTaP,Tdap,and Td Vaccine s (1 - Tdap) 1988 [facility]-Hepatitis B Vaccines (1 of 3 - 19+ 3-dose series) 1988 CT Colonography 2014 Colonoscopy 2014 FIT-DNA 2014 FIT 2014 FOBT 2014 Sigmoidoscopy 2014 [facility]-Colorectal Cancer Screening 2014 [facility]-Zoster Vaccines (1 of 2) 2019 [facility]-Pneumococcal Vaccine: 50 + Years (2 of 2 - PCV20 or PCV21) 01/28/2023 01/28/2022 [id number] Vaccine (4 - season) 2025 08/16/2021, 10/03/2020, 09/05/2020 [facility]-Influenza Vaccine (#1) 02/14/202503/30, 06/24/2019, 05/18/2016 HPV Vaccines Aged Out No longer eligi ble based on patient's age to complete this topic [facility]-HIB Vaccines Aged Out No longer e ligible based on patient's age to complete this topic [facility]-Hepatitis A Vaccines Aged Out No longer eligible based on patient's age to complete this topic [facility]-IPV Vaccines Aged Out No longer e ligible based on patient's age to complete this topic [facility]-Rotavirus Vaccines Aged Out No lo nger eligible based on patient's age to complete this topic Insurance MEDICARE Member Subscriber Plan / Payer (Ef fective 2016-Present) Name:Lincoln Brooks Member ID:[id number] Relation to Subscriber:Self Name:Lincoln Brooks Subscriber ID:[id number] Payer ID:MEDICARE Group ID:Not on file Type:Medicare Address: [address] Care Teams Project Management Professional Relationship Specialty Start Date End Date Princess Grimes PA [address] [place] [address] PCP - General 10/27/20
== END 2025-03-01 23:59 | disposition home or self-care (01) ==
LOC: LAB.DROPOF 03-02 12:43
PROVIDERS: PCP Podiatrist; Visit Provider Podiatrist
DX: S90.821A Blister (nonthermal), right foot, initial encounter (principal); L97.511 Non-pressure chronic ulcer of other part of right foot limited to breakdown of skin
CPT/HCPCS: 87070; 87077; 87205

== ENCOUNTER 2025-04-04 09:42 | Outpatient (CLI) | payer MEDICARE, SELFPAY ==
--- NOTE | 2025-04-04 09:45 | XR_ITS ---
FINAL REPORT CLINICAL HISTORY: Evaluation of Non healing foot ulcer COMPARISON: 10/12/2024 FINDINGS: Three views of the right foot show surgical changes of transmetatarsal amputation. There is no evidence of acute displaced fracture or dislocation of the visualized bony architecture. No evidence of bony destruction. No gas or radiopaque foreign body seen in the soft tissues. IMPRESSION: Surgical changes without acute findings. Reviewed, Interpreted and Dictated by Mechelle Stahl MD Transcribed by Yuliet Tavares Authenticated and . [facility]
--- OUTSIDE RECORDS SUMMARY | 2025-04-04 10:20 | XMS_ITS | Clinical Summary ---
Author Organization Healthcare Address [address] [place] [address] Care Team Providers Care Technical Applications Specialist Name Role Phone Princess Grimes Primary Care Provider [phone] Allergies No known active allergies Medications ergocalciferol [...] Date Last Done Comments [facility]-Depression Screening 1969 [facility]-/Child/Adol SDOH Screenings 1969 [facility]- SDOH Screenings 1987 [facility]-Adult SDOH Screenings [...] 2 - PCV20 or PCV21) 01/28/2023 01/28/2022 [id number] Vaccine (4 - season) 2025 08/16/2021, 10/03/2020, [...] age to complete this topic Insurance MEDICARE Care Teams Technical Applications Specialist Relationship Specialty Start Date End Date Princess Grimes PA [address] [place] [address] PCP - General 10/27/20
[2025-04-04 10:24] LABS: Hematocrit 44.9 % (42.0-52.0); Hemoglobin 14.2 g/dL (14.1-18.0); Immature Granulocytes % 0.4 %; Mean Corpuscular HGB Conc 31.6 g/dL (31.8-35.4); Mean Corpuscular Hemoglobin 26.2 pg (27.0-31.2); Mean Corpuscular Volume 82.7 fl (80-94); Nucleated Red Blood Cells % 0 %; Platelet Count 394 K/mm3 (142-424); Red Blood Count 5.43 M/mm3 (4.60-6.20); Red Cell Distribution Width-SD 36.9 fL; White Blood Count 8.0 K/mm3 (4.8-10.8)
[2025-04-04 10:38] LABS: Hemoglobin A1C 13.6 % (4.0-6.0)
[2025-04-04 10:58] LABS: Albumin Level 4.1 g/dl (3.5-5.0); Chloride 94 mmol/L (98-107); Potassium 5.3 mmoL/L (3.5-5.1); Sodium 134 mmol/L (136-145)
[2025-04-04 11:01] LABS: Alanine Aminotransferase 31 U/L (12-78); Albumin/Globulin Ratio 1.3 (1.1-1.8); Alkaline Phosphatase 87 U/L (38-126); Aspartate Amino Transferase 27 U/L (17-59); Bilirubin,Total 0.6 mg/dl (0.2-1.3); Blood Urea Nitrogen 29 mg/dl (9-20); Creatinine,Serum 1.20 mg/dl (0.66-1.25); Estimated Glomerular Filt Rate 63 ml/min (>60); GFR (African American) 76 ML/MIN (>60); Globulin 3.2 g/dL (1.3-3.2); Total Protein,Serum 7.3 g/dl (6.3-8.2)
[2025-04-04 11:02] LABS: Calcium 9.1 mg/dl (8.4-10.2)
[2025-04-04 11:03] LABS: Glucose 480 mg/dl (74-100)
[2025-04-04 11:58] LABS: C-Reactive Protein 14.4 mg/L (0-4)
[2025-04-04 12:04] LABS: Anion Gap 15.3 mEq/L (5-15); Carbon Dioxide 30 mmol/L (22.0-30.0)
== END 2025-04-04 23:59 | disposition home or self-care (01) ==
LOC: LAB 09:43
PROVIDERS: PCP Family Medicine; Visit Provider Podiatrist
DX: E11.621 Type 2 diabetes mellitus with foot ulcer (principal); L97.511 Non-pressure chronic ulcer of other part of right foot limited to breakdown of skin; E11.40 Type 2 diabetes mellitus with diabetic neuropathy, unspecified; Z98.890 Other specified postprocedural states
CPT/HCPCS: 36415; 73630; 80053; 83036; 85025; 85651; 86140; 87070; 87205

== ENCOUNTER 2025-06-07 08:34 | Outpatient (CLI) | payer MEDICARE, SELFPAY ==
--- OUTSIDE RECORDS SUMMARY | 2025-06-07 08:37 | XMS_ITS | Clinical Summary ---
Author Organization Healthcare Address [address] [place] [address] Care Team Providers Care Is Technician Name Role Phone Princess Grimes Primary Care Provider [phone] Allergies No known active allergies Medications ergocalciferol [...] 2 - PCV20 or PCV21) 01/28/2023 01/28/2022 [id number] Vaccine (4 - season) 2025 08/16/2021, 10/03/2020, 09/05/2020 [facility]-Influenza Vaccine (#1) 02/14/202503/30, 06/24/2019, 05/18/2016 HPV Vaccines (No Doses Required) Completed [facility]-HIB Vaccines Aged Out No longer e [...] complete this topic Insurance MEDICARE Care Teams Is Technician Relationship Specialty Start Date End Date Princess Grimes PA [address] [place] [address] PCP - General 10/27/20
[2025-06-07 10:22] LABS: Alanine Aminotransferase 31 U/L (12-78); Albumin Level 4.5 g/dl (3.5-5.0); Alkaline Phosphatase 78 U/L (38-126); Aspartate Amino Transferase 29 U/L (17-59); Bilirubin,Direct 0.2 mg/dl (0.0-0.4); Bilirubin,Indirect 0.3 mg/dL (0.0-0.9); Bilirubin,Total 0.5 mg/dl (0.2-1.3); Bilirubin,Unconjugated 0.3 mg/dL (0.0-1.1); Cholesterol 123 mg/dl (140-200); HDL Cholesterol 34 mg/dl (40-60); Total Protein,Serum 7.6 g/dl (6.3-8.2); Triglycerides 187 mg/dl (30-150)
== END 2025-06-07 23:59 | disposition home or self-care (01) ==
LOC: LAB 08:35
PROVIDERS: PCP Family Medicine; Visit Provider Nurse Practitioner Family
DX: E78.2 Mixed hyperlipidemia (principal); I10 Essential (primary) hypertension; I25.10 Atherosclerotic heart disease of native coronary artery without angina pectoris
CPT/HCPCS: 36415; 80061; 80076